=== PATIENT | female | born 1940 | race Caucasian/White ===

== ENCOUNTER → 2021-03-05 08:13 | Outpatient (BNVA) | payer MEDICARE, SELFPAY | PROVIDERS: PCP Nurse Practitioner Family | DX: N39.41 Urge incontinence (principal); N32.81 Overactive bladder; E78.5 Hyperlipidemia, unspecified; I10 Essential (primary) hypertension | CPT/HCPCS: 51798; 99212 ==

== ENCOUNTER → 2021-04-03 08:01 | Outpatient (BNVA) | payer MEDICARE, BC, SELFPAY | PROVIDERS: PCP Nurse Practitioner Family | DX: N32.81 Overactive bladder (principal) | CPT/HCPCS: 51798 ==

== ENCOUNTER → 2021-06-11 08:43 | Outpatient (BNVA) | payer MEDICARE, BC, SELFPAY | PROVIDERS: PCP Nurse Practitioner Family | DX: N32.81 Overactive bladder (principal) | CPT/HCPCS: 51798; 99212 ==

== ENCOUNTER → 2021-12-10 08:51 | Outpatient (BNVA) | payer MEDICARE, BC, SELFPAY | PROVIDERS: PCP Nurse Practitioner Family | DX: N32.81 Overactive bladder (principal) | CPT/HCPCS: 51798; 99212 ==

== ENCOUNTER → 2022-11-17 13:44 | Outpatient (BNVA) | payer MEDICARE, BC, SELFPAY | PROVIDERS: PCP Nurse Practitioner Family; Visit Provider Nurse Practitioner Family | DX: N32.81 Overactive bladder (principal); Z79.899 Other long term (current) drug therapy | CPT/HCPCS: 51798; 99212 ==

== ENCOUNTER 2023-04-22 11:19 | Outpatient (AMB) | payer MEDICARE, BC, SELFPAY ==
--- NOTE | 2023-04-22 11:23 | AM.OFFWIN_ITS ---
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 and has been taking otc cough syrup, she states she has pain in her upper back when she coughs and has experiecing sob. Patient Tobacco Use Status: Former Tobacco user Allergies Penicillins Allergy (Mild, Verified 04/22/23 11:25) UNKNOWN lisinopril [LISINOPRIL] Allergy (Unknown, Verified 04/22/23 11:25) COUGH Do you need a note to return to daycare/school/sports/work: No HPI HPI Comments History of Present Illness Details This is a 82-year-old female with past medical history significant for asthma who presents to the office today for a sick visit. Patient states she has had a dry cough for the past 2 weeks. She states she feels like she has mucus in her chest and in her throat but she is unable to cough the mucus up. She reports some mild chills but denies any fevers. She reports some mild dyspnea on exertion. She also reports some wheezing at nighttime. She denies any lower extremity edema. She denies any chest pain. She denies any abdominal pain or nausea/vomiting/diarrhea. She denies any known sick contacts. [facility] Medical History (Updated 11/17/22 @ 14:54 by NICA Deshpande-) Asthma Dementia HTN (hypertension) Hyperlipidemia OAB (overactive bladder) Primary osteoarthritis of left knee Primary osteoarthritis of right knee Urgency incontinence Surgical History History of surgery Social History Patient Tobacco Use Status: Former Tobacco user Review of Systems Const All systems reviewed & are unremarkable except as noted in HPI and below Reports no additional complaints, Reports chills and Denies fever(s) Eyes Reports no additional complaints ENT Reports no additional complaints Card Reports no additional complaints, Denies chest pain and Reports dyspnea on exertion Resp Reports no additional complaints, Reports cough, Reports pain with cough and Reports dyspnea on exertion GI Reports no additional complaints Reports no additional complaints Musc Reports no additional complaints Skin/Breast Reports system reviewed and no additional complaints, except as documented Neuro Reports no additional complaints Psych Reports no additional complaints Endo Reports no additional complaints Keaton/Lymph Reports no additional complaints Aller/Immun Reports no additional complaints Physical Exam Vital Signs: Last Vital Signs Temp 97.8 F 04/22/23 11:26 Pulse 66 04/22/23 11:26 BP 120/80 04/22/23 11:26 Pulse Ox 100 04/22/23 11:26 Oxygen Delivery Method Room Air 04/22/23 11:26 Const General: cooperative, healthy appearing, comfortable, no acute distress and well developed Orientation/consciousness: patient oriented x3 HEENT Head: Yes normal to inspection Ears: hearing grossly normal bilaterally General nose exam: Normal external nose present Face and sinus: Yes normal facial exam Mouth: Normal oral and palatal mucosa present Throat: Yes posterior oropharynx normal Resp Effort & Inspection: normal respiratory effort, not labored, no respiratory distress and no use of accessory muscles Auscultation: clear to auscultation bilaterally, no rales, no rhonchi and no wheezes Cardio Rate: regular rate Rhythm: regular rhythm Heart sounds: no gallops, no murmurs and no rubs Peripheral pulses: Peripheral pulses 2+ throughout GI Inspection: Yes normal to inspection and No distended Palpation (GI): Soft to palpation and nontender Auscultation: normal bowel sounds Skin General skin exam: no rashes or lesions noted Neuro General: patient oriented x3 Cranial nerves: Yes CN's II-XII intact bilaterally Gait exam (Neuro): Normal gait present Motor exam (neuro): 5/5 motor strength present throughout Assessment & Plan Assessment & Plan (1) Cough: Code(s): R05.9 - Cough, unspecified (2) Asthmatic bronchitis: Code(s): J45.909 - Unspecified asthma, uncomplicated Plan This is an 82-year-old female past medical history significant for asthma who presents with a dry cough, dyspnea on exertion, and wheezing at nighttime. Her history and physical are most consistent with an acute asthmatic bronchitis, but pneumonia cannot be ruled out. Chest x-ray was ordered to evaluate for pneumonia. Patient was sent home on a Z-Michael as well as a prednisone taper. Patient was instructed to follow-up here or go to the emergency room if she were to develop fever/chills, worsening shortness of breath, worsening cough sputum production, or hemoptysis. Patient verbalizes her understanding and she is in agreement with the plan. Orders: Orders XR chest 2V Today R05.9 - Cough, unspecified Medications: New azithromycin For 250 mg dose pack: take 500 mg today (day 1), then 250 mg for 4 days (days 2-5) PO 6 tabs 0RF prednisone Take 4 tablets daily for 2 days followed by 3 tablets daily for 2 days followed by 2 tablets daily for 2 days followed by 1 tablet daily for 2 days. 10 mg PO DIRECTED 20 tabs 0RF Coding Level of Care Code Est Pt Level 3 (22440) Diagnoses Cough R05.9 Asthmatic bronchitis J45.909
[2023-04-22 11:26] VITALS: BP 120/80; PULSE 66; TEMP 36.6; O2SAT 100
== END 2023-04-22 12:59 | disposition home or self-care (01) ==
PROVIDERS: PCP Nurse Practitioner Family; Visit Provider Physician Assistant Medical
DX: R05.9 Cough, unspecified (principal); J45.909 Unspecified asthma, uncomplicated
CPT/HCPCS: 99213

== ENCOUNTER 2023-04-22 11:58 | Outpatient (REF) | payer MEDICARE, BC, SELFPAY ==
--- NOTE | ~2023-04-22 | XR_ITS ---
EXAMINATION: XR CHEST CLINICAL INFORMATION: Cough. COMPARISON: 12/19/2012 TECHNIQUE: 2 views of the chest were obtained. FINDINGS: The lungs are well expanded. Increased opacity at the left base. No pleural effusion or pneumothorax. The cardiomediastinal silhouette is within normal limits. XR/XR chest 2V IMPRESSION: Increased left basilar opacity which could represent atelectasis or pneumonia.
== END 2023-04-22 11:59 | disposition home or self-care (01) ==
LOC: HO.HMGCX 11:58
PROVIDERS: PCP Nurse Practitioner Family; Visit Provider Physician Assistant Medical
DX: R05.9 Cough, unspecified (principal)
CPT/HCPCS: 71046

== ENCOUNTER 2023-07-05 10:12 | Outpatient (AMB) | payer MEDICARE, BC, SELFPAY ==
--- NOTE | 2023-07-05 10:20 | MHC.OFFVIS ---
Intake Intake Visit Reasons: 6m follow up/PVR Intake Note: Patient is present for follow up OAB Urology medications: solifenacin (vesicare), gemtesa, estradiol cream Blood thinners: none Post void residual: 120ml's [employer] Required: No Accompanied by: Self / Same As Patient Allergies Penicillins Allergy (Mild, Verified 07/05/23 11:28) UNKNOWN lisinopril [LISINOPRIL] Allergy (Unknown, Verified 07/05/23 11:28) COUGH Medication List - Last Reconciled 07/05/23 by NICA Deshpande- aspirin (Adult Low Dose Aspirin) 81 mg PO DAILY atenolol 50 mg PO DAILY donepezil 5 mg PO DAILY estradiol 0.01%(0.1mg/gram) (Estrace) pea sized amount per urethra vaginal daily; 30 days fluticasone furoate-vilanterol 100-25 mcg/dose 1 ea inhalation DAILY gabapentin 400 mg PO BID losartan 25 mg PO DAILY montelukast 10 mg PO DAILY pantoprazole 20 mg PO DAILY paroxetine HCl 40 mg PO DAILY ropinirole 0.25 mg PO BID simvastatin 20 mg PO BEDTIME solifenacin (Vesicare) 5 mg PO DAILY 90 days vibegron (Gemtesa) 75 mg PO DAILY 90 days HPI HPI Comments History of Present Illness Details Ivelisse is a pleasant 82-year-old female patient of Dr. Bolden. She has a past medical history of dementia, asthma, hyperlipidemia, hypertension, overactive bladder, osteoarthritis, and urgency incontinence. She presents today to the office for follow-up regarding her lower urinary tract symptoms. She reports living at [facility] and really enjoys living there. When asked she reports to be doing and feeling well. In discussion with the patient today regarding her urinary symptoms she reports compliance with Gemtesa 75 mg daily, VESIcare 5 mg daily and Estrace cream 3 times per week as prescribed. When asked she reports feeling like she has been having difficulty initiating her urinary stream. However, in assessment evaluation with the patient today she is vague and upon further assessment discusses her history of dementia and reports she has a difficult time remembering. When asked she denies hematuria, dysuria, foul smelling urine, flank pain, fever, and or chills. She reports utilizing one adult diaper per day. She endorses being active within the community ([facility]) as well as at her residence. She states she continues working on her memory with activities daily. In office urinalysis results reviewed with the patient today. PVR 120ml's. Discussed given symptoms with difficulty initiating urinary stream and increase in PVR will discontinue VESIcare 5 mg daily at this time. Discussed obtaining retroperitoneal ultrasound for further assessment evaluation. Patient otherwise denies any bothersome urinary issues or concerns at this time. [facility] Medical History Dementia Asthma Hyperlipidemia HTN (hypertension) OAB (overactive bladder) Primary osteoarthritis of left knee Primary osteoarthritis of right knee Urgency incontinence Surgical History History of surgery Social History Patient Tobacco Use Status: Former Tobacco user Review of Systems Const Reports as per HPI Eyes Reports no additional complaints ENT Reports no additional complaints Card Reports as per HPI Resp Reports no additional complaints GI Reports no additional complaints Reports as per HPI Musc Details: She reports following up with pain management in [place] for ongoing injections for her arthritis. Reports as per HPI Neuro Reports as per HPI Psych Reports no additional complaints Endo Reports no additional complaints Keaton/Lymph Reports no additional complaints Aller/Immun Reports no additional complaints Physical Exam Const General: cooperative, healthy appearing, comfortable, no acute distress, well developed, alert and awake Orientation/consciousness: patient oriented x3 Limitations: ambulation with walker HEENT Head: Yes normal to inspection, Yes normocephalic and Yes atraumatic Ears: hearing grossly normal bilaterally Eyes General: appearance normal, both eyes and all related structures Neck Neck: Yes normal visual inspection and Yes trachea midline Chest Chest palpation & inspection: normal inspection of the chest Resp Effort & Inspection: normal respiratory effort and able to speak in complete sentences Cardio Rate: regular rate GI Inspection: Yes normal to inspection General: Yes no CVA tenderness Back/Spine/Pelvis Back: no CVA tenderness Skin General skin exam: no rashes or lesions noted Neuro General: patient oriented x3 Extrem General: Yes normal to inspection Psych Appearance: grossly normal Mental Status: mental status grossly normal Speech and movement: Normal speech and movement present and Clear speech present Affect: normal affect Attitude: cooperative Thought process: Normal thought process present Thought content: Normal thought content present Insight: Fair insight present (Psych) Judgement: Fair judgement present (Psych) Office Procedures Post Void Residual Post Residual Void Post Void Residual (PVR): 120 [id number] Void Residual by ultrasound Results AMB Urinalysis, Automated UA Leukoctes 0 Violet/uL Last Edit by Shadia Figueroa on 07/05/23 11:09 UA Nitrite Negative Last Edit by [email or web address] on 07/05/23 11:09 UA Urobilinogen 0.2 mg/dL Last Edit by [email or web address] on 07/05/23 11:09 UA Protein 15 mg/dL Last Edit by [employer] on 07/05/23 11:09 UA pH 5.5 Last Edit by [email or web address] on 07/05/23 11:09 UA Blood 0 Zachery/uL Last Edit by [email or web address] on 07/05/23 11:09 UA Specific [place] 1.025 Last Edit by [email or web address] on 07/05/23 11:09 UA Ketone Negative Last Edit by [email or web address] on 07/05/23 11:09 UA Bilirubin 1 mg/dL Last Edit by [employer] on 07/05/23 11:09 UA Glucose 0 mg/dL Last Edit by [email or web address] on 07/05/23 11:09 Results Reviewed Results Reviewed: Laboratory Last Values Urine pH (Auto) 5.5 07/05/23 11:05 Specific [place] (Auto) 1.025 07/05/23 11:05 Urine Protein (Auto) 15 mg/dL 07/05/23 11:05 Glucose (UA)(Auto) 0 mg/dL 07/05/23 11:05 Urine Ketones (Auto) Negative 07/05/23 11:05 Urine Blood (Auto) 0 Zachery/uL 07/05/23 11:05 Urine Nitrite (Auto) Negative 07/05/23 11:05 Urine Bilirubin (Auto) 1 mg/dL 07/05/23 11:05 Urine Urobilinogen (Auto) 0.2 mg/dL 07/05/23 11:05 Leukocyte Esterase (Auto) 0 Violet/uL 07/05/23 11:05 Assessment & Plan Assessment & Plan (1) OAB (overactive bladder): Code(s): N32.81 - Overactive bladder (2) Incomplete bladder emptying: Code(s): R33.9 - Retention of urine, unspecified Plan In office urinalysis results reviewed with the patient today. PVR 120 mL. Discussed at length incomplete bladder emptying. Continue Gemtesa 75 mg daily. Continue compliance with Estrace cream as prescribed. Stop VESIcare 5 mg as discussed. Will obtain retroperitoneal ultrasound for further assessment evaluation. Follow-up in 6 weeks with PVR and imaging to be completed prior; or sooner with any issues, concerns, and or questions. Orders: Orders US retroperitoneal comp Today N32.81 - Overactive bladder AMB Urinalysis Automated Today Z13.9 - Encounter for screening, unspecified AMB Post Void Residual by ultrasound Today N32.81 - Overactive bladder Medications: Discontinued solifenacin (Vesicare) Discontinued Reason: Doctor's Order 5 mg PO DAILY 90 tabs 2RF OAB 90 days Patient Instructions: The patient had an opportunity to ask questions regarding the treatment plan. All questions were answered. Physical exam, labs, and imaging were discussed and reviewed in detail. As well as risks, benefits, and discussion of treatment choices. No major barriers to understanding were identified. The patient expressed understanding and agreement with the above treatment plan. The patient was made aware they should contact our office by phone for worsening of their current condition, the appearance of new symptoms, or with any questions or concerns. Compliance is encouraged with any medications and follow up testing that is ordered. It is a privilege to be allowed the opportunity to participate in? your urological care.? Again, if you have any questions or concerns If you have any questions or concerns please do not hesitate to contact me. The office is [phone]. This note is constructed using voice recognition software. While every effort has been made to ensure accuracy senior lead developer errors may have been included. Yours sincerely, MILAD Deshpande Coding Level of Care Code Est Pt Level 3 (50229) Diagnoses OAB (overactive bladder) N32.81 Incomplete bladder emptying R33.9 CPT Codes Post Residual Void - PVR CPT Code: 48323-Asso Void Residual by ultrasound ([id number])
== END 2023-07-05 11:30 | disposition home or self-care (01) ==
PROVIDERS: PCP Nurse Practitioner Family; Visit Provider Nurse Practitioner Family
DX: N32.81 Overactive bladder (principal); R33.9 Retention of urine, unspecified
CPT/HCPCS: 99213

== ENCOUNTER → 2023-07-05 10:12 | Outpatient (BNVA) | payer MEDICARE, BC, SELFPAY | PROVIDERS: PCP Nurse Practitioner Family; Visit Provider Nurse Practitioner Family | DX: N32.81 Overactive bladder (principal); R33.9 Retention of urine, unspecified; Z79.899 Other long term (current) drug therapy | CPT/HCPCS: 51798; 81003; 99212 ==

== ENCOUNTER 2023-08-08 13:55 | Outpatient (REF) | payer MEDICARE, SELFPAY ==
--- NOTE | ~2023-08-08 | US_ITS ---
EXAMINATION: US RETROPERITONEAL COMPLETE (RENAL) CLINICAL INFORMATION: Overactive bladder. COMPARISON: None available. TECHNIQUE: Real-time imaging of the kidneys and bladder. FINDINGS: RIGHT KIDNEY: 10.8 x 5.3 x 4.2 cm (SAG x AP x TRV). The kidney is normal in size, contour, and echogenicity. Renal cortical thickness is normal. No calculi or focal parenchymal lesions. No hydronephrosis. LEFT KIDNEY: 9.9 x 5.0 x 6.0 cm (SAG x AP x TRV). The kidney is normal in size, contour, and echogenicity. Renal cortical thickness is normal. No renal calculi or hydronephrosis. Tiny anechoic simple cyst is seen in inferior left renal cortex measuring 0.7 x 0.8 x 0.6 cm in size. BLADDER: Partially distended. Bilateral ureteral jets are demonstrated. Prevoid bladder volume is 29 mL. The patient could not hold bladder. US/US retroperitoneal comp IMPRESSION: 1. Inferior left renal cortical simple cyst, Bosniak category 1 lesion is seen, for which no follow up imaging is recommended. 2. No evidence of hydronephrosis. 3. Unremarkable urinary bladder, which is not adequately distended. Patent bilateral ureters are demonstrated.
== END 2023-08-08 13:56 | disposition home or self-care (01) ==
LOC: HO.US 13:55
PROVIDERS: Visit Provider Nurse Practitioner Family
DX: N32.81 Overactive bladder (principal)
CPT/HCPCS: 76770

== ENCOUNTER 2023-08-17 09:13 | Outpatient (AMB) | payer MEDICARE, BC, SELFPAY ==
--- NOTE | 2023-08-17 10:19 | A.OFFVIS_ITS ---
Intake Intake Visit Reasons: 6w/US/PVR(set) Intake Note: Patient is present for follow up OAB Urology medications: d/c solifenacin (vesicare), gemtesa, estradiol cream Blood thinners: none Post void residual: 79ml's Railroad Carman Required: No Accompanied by: Self / Same As Patient Allergies Penicillins Allergy (Mild, Verified 08/17/23 21:41) UNKNOWN lisinopril [LISINOPRIL] Allergy (Unknown, Verified 08/17/23 21:41) COUGH Medication List - Last Reconciled 08/17/23 by NICA Deshpande- aspirin (Adult Low Dose Aspirin) 81 mg PO DAILY atenolol 50 mg PO DAILY donepezil 5 mg PO DAILY estradiol 0.01%(0.1mg/gram) (Estrace) pea sized amount per urethra vaginal daily; 30 days fluticasone furoate-vilanterol 100-25 mcg/dose 1 ea inhalation DAILY gabapentin 400 mg PO BID losartan 25 mg PO DAILY montelukast 10 mg PO DAILY pantoprazole 20 mg PO DAILY paroxetine HCl 40 mg PO DAILY ropinirole 0.25 mg PO BID simvastatin 20 mg PO BEDTIME vibegron (Gemtesa) 75 mg PO DAILY 90 days HPI HPI Comments History of Present Illness Details Ivelisse is a pleasant 82-year-old female patient of Dr. Bolden. She has a past medical history of dementia, asthma, hyperlipidemia, hypertension, overactive bladder, osteoarthritis, and urgency incontinence. She presents today to the office for follow-up regarding her lower urinary tract symptoms. Of note, patient was seen approximately 6 weeks ago at which time a retroperitoneal ultrasound was ordered for further assessment evaluation. These results reviewed with the patient today. Right kidney with no calculi, lesions, and or hydronephrosis. The left kidney with no calculi or hydronephrosis. Tiny anechoic simple cyst is seen in inferior left renal cortex measuring 0.7 x 0.8 x 0.6 cm in size. Bosniak category 1, for which no follow- up imaging is recommended per radiology report. The bladder is partially distended. Bilateral ureteral jets are demonstrated. Pre void bladder volume is approximately 30 mL. The patient could not void. She discusses living at the [facility] in [place] and really enjoys living there however feels her memory and dementia is worsening. She discusses upcoming appointment with PCP to discuss further treatment options for her dementia. She continues to report nocturia. However, she reports feeling her chronic back pain is will initially wakes her up and then she will feel the need to use the bathroom. She reports compliance with Gemtesa a 75 mg daily during last office visit VESIcare 5 mg daily was discontinued due to patient reporting difficulty initiating her urinary stream. When asked she denies hematuria, dysuria, foul smelling urine, flank pain, fever, and or chills. She reports utilizing one/two adult diapers per day. She endorses being active within the community ([facility]) as well as at her residence. She states she continues working on her memory with activities daily. In office urinalysis results reviewed with the patient today. PVR 76ml's. Discuss trial of other overactive bladder medication. Discussed at length potential causes for lower urinary tract symptoms patient is experiencing. She otherwise offers no other issues or concerns at this time. [facility] Medical History Dementia Asthma Hyperlipidemia HTN (hypertension) OAB (overactive bladder) Primary osteoarthritis of left knee Primary osteoarthritis of right knee Urgency incontinence Surgical History History of surgery Social History Patient Tobacco Use Status: Former Tobacco user Review of Systems Const Reports as per HPI Eyes Reports no additional complaints ENT Reports no additional complaints Card Reports as per HPI Resp Reports no additional complaints GI Reports no additional complaints Reports as per HPI Musc Details: She reports following up with pain management in [place] for ongoing injections for her arthritis. Reports as per HPI Neuro Reports as per HPI Psych Reports no additional complaints Endo Reports no additional complaints Keaton/Lymph Reports no additional complaints Aller/Immun Reports no additional complaints Physical Exam Const General: cooperative, healthy appearing, comfortable, no acute distress, well developed, alert and awake Orientation/consciousness: patient oriented x3 Limitations: ambulation with walker HEENT Head: Yes normal to inspection, Yes normocephalic and Yes atraumatic Ears: hearing grossly normal bilaterally Eyes General: appearance normal, both eyes and all related structures Neck Neck: Yes normal visual inspection and Yes trachea midline Chest Chest palpation & inspection: normal inspection of the chest Resp Effort & Inspection: normal respiratory effort and able to speak in complete sentences Cardio Rate: regular rate GI Inspection: Yes normal to inspection General: Yes no CVA tenderness Back/Spine/Pelvis Back: no CVA tenderness Skin General skin exam: no rashes or lesions noted Neuro General: patient oriented x3 Extrem General: Yes normal to inspection Psych Appearance: grossly normal Mental Status: mental status grossly normal Speech and movement: Normal speech and movement present and Clear speech present Affect: normal affect Attitude: cooperative Thought process: Normal thought process present Thought content: Normal thought content present Insight: Fair insight present (Psych) Judgement: Fair judgement present (Psych) Office Procedures Post Void Residual Post Residual Void Post Void Residual (PVR): 79 [id number] Void Residual by ultrasound Results AMB Urinalysis, Automated UA Leukoctes 0 Violet/uL Last Edit by Karmarama on 08/17/23 10:43 UA Nitrite Negative Last Edit by Karmarama on 08/17/23 10:43 UA Urobilinogen 0.2 mg/dL Last Edit by Karmarama on 08/17/23 10:43 UA Protein 15 mg/dL Last Edit by Karmarama on 08/17/23 10:43 UA pH 5.5 Last Edit by Karmarama on 08/17/23 10:43 UA Blood 0 Zachery/uL Last Edit by Karmarama on 08/17/23 10:43 UA Specific [place] 1.030 Last Edit by Karmarama on 08/17/23 10:43 UA Ketone Negative Last Edit by Karmarama on 08/17/23 10:43 UA Bilirubin 1 mg/dL Last Edit by Karmarama on 08/17/23 10:43 UA Glucose 0 mg/dL Last Edit by Karmarama on 08/17/23 10:43 Results Reviewed Results Reviewed: Laboratory Last Values Urine pH (Auto) 5.5 08/17/23 10:22 Specific [place] (Auto) 1.030 08/17/23 10:22 Urine Protein (Auto) 15 mg/dL 08/17/23 10:22 Glucose (UA)(Auto) 0 mg/dL 08/17/23 10:22 Urine Ketones (Auto) Negative 08/17/23 10:22 Urine Blood (Auto) 0 Zachery/uL 08/17/23 10:22 Urine Nitrite (Auto) Negative 08/17/23 10:22 Urine Bilirubin (Auto) 1 mg/dL 08/17/23 10:22 Urine Urobilinogen (Auto) 0.2 mg/dL 08/17/23 10:22 Leukocyte Esterase (Auto) 0 Violet/uL 08/17/23 10:22 Date of Service: 08/08/23 EXAMINATION: US RETROPERITONEAL COMPLETE (RENAL) FINDINGS: RIGHT KIDNEY: 10.8 x 5.3 x 4.2 cm (SAG x AP x TRV). The kidney is normal in size, contour, and echogenicity. Renal cortical thickness is normal. No calculi or focal parenchymal lesions. No hydronephrosis. LEFT KIDNEY: 9.9 x 5.0 x 6.0 cm (SAG x AP x TRV). The kidney is normal in size, contour, and echogenicity. Renal cortical thickness is normal. No renal calculi or hydronephrosis. Tiny anechoic simple cyst is seen in inferior left renal cortex measuring 0.7 x 0.8 x 0.6 cm in size. BLADDER: Partially distended. Bilateral ureteral jets are demonstrated. Prevoid bladder volume is 29 mL. The patient could not hold bladder. IMPRESSION: 1. Inferior left renal cortical simple cyst, Bosniak category 1 lesion is seen, for which no follow up imaging is recommended. 2. No evidence of hydronephrosis. 3. Unremarkable urinary bladder, which is not adequately distended. Patent bilateral ureters are demonstrated. Assessment & Plan Assessment & Plan (1) Incomplete bladder emptying: Code(s): R33.9 - Retention of urine, unspecified (2) OAB (overactive bladder): Code(s): N32.81 - Overactive bladder (3) Renal cyst: Code(s): N28.1 - Cyst of kidney, acquired (4) Nocturia: Code(s): R35.1 - Nocturia Plan In office urinalysis results reviewed with the patient today. PVR 76 mL. Recent retroperitoneal ultrasound results reviewed with the patient today. Stop Gemtesa Start Myrbetriq as discussed and prescribed. Discussed at length potential causes for lower urinary tract symptoms patient is experiencing. Discussed and stressed the importance of limiting fluids 2-3 hours prior to bed to assist with decreasing episodes of nocturia. Discussed near future urodynamics and or in office cystoscopy for further assessment evaluation if symptoms persist and/or worsen. Follow-up in 6 weeks with PVR; or sooner with any issues, concerns, and or questions. Orders: Orders AMB Urinalysis Automated Today Z13.9 - Encounter for screening, unspecified AMB Post Void Residual by ultrasound Today R33.9 - Retention of urine, unspecified Medications: New mirabegron ER (Myrbetriq) 50 mg PO DAILY 30 days 30 tabs 1RF Discontinued vibegron (Gemtesa) Discontinued Reason: Doctor's Order 75 mg PO DAILY 90 days 90 tabs 2RF Patient Instructions: The patient had an opportunity to ask questions regarding the treatment plan. All questions were answered. Physical exam, labs, and imaging were discussed and reviewed in detail. As well as risks, benefits, and discussion of treatment choices. No major barriers to understanding were identified. The patient expressed understanding and agreement with the above treatment plan. The patient was made aware they should contact our office by phone for worsening of their current condition, the appearance of new symptoms, or with any questions or concerns. Compliance is encouraged with any medications and follow up testing that is ordered. It is a privilege to be allowed the opportunity to participate in? your urological care.? Again, if you have any questions or concerns If you have any questions or concerns please do not hesitate to contact me. The office is [phone]. This note is constructed using voice recognition software. While every effort has been made to ensure accuracy technical illustrator errors may have been included. Yours sincerely, MILAD Deshpande Coding Level of Care Code Est Pt Level 4 (42204) Diagnoses Incomplete bladder emptying R33.9 OAB (overactive bladder) N32.81 Renal cyst N28.1 Nocturia R35.1 CPT Codes Post Residual Void - PVR CPT Code: 85071-Tscm Void Residual by ultrasound ([id number])
== END 2023-08-17 10:59 | disposition home or self-care (01) ==
LOC: HO.HUSH 09:13
PROVIDERS: PCP Nurse Practitioner Family; Visit Provider Nurse Practitioner Family
DX: R33.9 Retention of urine, unspecified (principal); N32.81 Overactive bladder; N28.1 Cyst of kidney, acquired; R35.1 Nocturia
CPT/HCPCS: 99214

== ENCOUNTER → 2023-08-17 09:13 | Outpatient (BNVA) | payer BC, SELFPAY | PROVIDERS: PCP Nurse Practitioner Family; Visit Provider Nurse Practitioner Family | DX: R33.9 Retention of urine, unspecified (principal); N32.81 Overactive bladder; N28.1 Cyst of kidney, acquired; R35.1 Nocturia | CPT/HCPCS: 51798; 81003 ==

== ENCOUNTER 2023-09-30 09:15 | Outpatient (AMB) | payer MEDICARE, BC, SELFPAY ==
--- NOTE | 2023-09-30 09:47 | A.OFFVIS_ITS ---
Intake Intake Visit Reasons: 6w/PVR Intake Note: Patient is present for follow up OAB Urology medications: estradiol cream, myrbetriq Blood thinner: aspirin Post void residual: 15ml's Nc Manager Required: No Accompanied by: Self / Same As Patient Allergies Penicillins Allergy (Mild, Verified 09/30/23 10:08) UNKNOWN lisinopril [LISINOPRIL] Allergy (Unknown, Verified 09/30/23 10:08) COUGH Medication List - Last Reconciled 09/30/23 by NICA Deshpande-STACIE aspirin (Adult Low Dose Aspirin) 81 mg PO DAILY atenolol 50 mg PO DAILY donepezil 5 mg PO DAILY estradiol 0.01%(0.1mg/gram) (Estrace) pea sized amount per urethra vaginal daily; 30 days fluticasone furoate-vilanterol 100-25 mcg/dose 1 ea inhalation DAILY gabapentin 400 mg PO BID losartan 25 mg PO DAILY mirabegron ER (Myrbetriq) 50 mg PO DAILY 90 days montelukast 10 mg PO DAILY pantoprazole 20 mg PO DAILY paroxetine HCl 40 mg PO DAILY ropinirole 0.25 mg PO BID simvastatin 20 mg PO BEDTIME HPI HPI Comments History of Present Illness Details Ivelisse is a pleasant 83-year-old female patient of Dr. Bolden. She has a past medical history of dementia, asthma, hyperlipidemia, hypertension, overactive bladder, osteoarthritis, and urgency incontinence. She presents today to the office for follow-up regarding her lower urinary tract symptoms. Of note, patient was seen approximately 6 weeks ago at which time her jump test and VESIcare discontinued and was started on 50 mg of Myrbetriq daily. In discussion with the patient today she reports noting significant improvement in nocturia, urinary frequency, and urinary urgency. She reports to be happy with current voiding parameters on 50 mg of Myrbetriq daily and wishes to continue at this time. Previous workup has included a retroperitoneal ultrasound noting right kidney with no calculi, lesions, and or hydronephrosis. The left kidney with no calculi or hydronephrosis. Tiny anechoic simple cyst is seen in inferior left renal cortex measuring 0.7 x 0.8 x 0.6 cm in size. Bosniak category 1, for which no follow-up imaging is recommended per radiology report. The bladder is partially distended. Bilateral ureteral jets are demonstrated. Pre void bladder volume is approximately 30 mL. In office urinalysis results reviewed with the patient today. PVR 15 mL. She discusses living at the [facility] in [place] and really enjoys living there however feels her memory and dementia at times are worsening. She discusses upcoming appointment with PCP to discuss further treatment options for her dementia. When asked she denies hematuria, dysuria, foul smelling urine, flank pain, fever, and or chills. She discusses being active within the community ([facility]) as well as at her residence. She states she continues working on her memory with activities daily. She otherwise offers no other issues or concerns at this time. [facility] Medical History Dementia Asthma Hyperlipidemia HTN (hypertension) OAB (overactive bladder) Primary osteoarthritis of left knee Primary osteoarthritis of right knee Urgency incontinence Surgical History History of surgery Social History Patient Tobacco Use Status: Former Tobacco user Review of Systems Const Reports as per HPI Eyes Reports no additional complaints ENT Reports no additional complaints Card Reports as per HPI Resp Reports no additional complaints GI Reports no additional complaints Reports as per HPI Musc Details: She reports following up with pain management in [place] for ongoing injections for her arthritis. Reports as per HPI Neuro Reports as per HPI Psych Reports no additional complaints Endo Reports no additional complaints Keaton/Lymph Reports no additional complaints Aller/Immun Reports no additional complaints Physical Exam Const General: cooperative, healthy appearing, comfortable, no acute distress, well developed, alert and awake Orientation/consciousness: patient oriented x3 Limitations: ambulation with walker HEENT Head: Yes normal to inspection, Yes normocephalic and Yes atraumatic Ears: hearing grossly normal bilaterally Eyes General: appearance normal, both eyes and all related structures Neck Neck: Yes normal visual inspection and Yes trachea midline Chest Chest palpation & inspection: normal inspection of the chest Resp Effort & Inspection: normal respiratory effort and able to speak in complete sentences Cardio Rate: regular rate GI Inspection: Yes normal to inspection General: Yes no CVA tenderness Back/Spine/Pelvis Back: no CVA tenderness Skin General skin exam: no rashes or lesions noted Neuro General: patient oriented x3 Extrem General: Yes normal to inspection Psych Appearance: grossly normal Mental Status: mental status grossly normal Speech and movement: Normal speech and movement present and Clear speech present Affect: normal affect Attitude: cooperative Thought process: Normal thought process present Thought content: Normal thought content present Insight: Fair insight present (Psych) Judgement: Fair judgement present (Psych) Office Procedures Post Void Residual Post Residual Void Post Void Residual (PVR): 15 [id number] Void Residual by ultrasound Results AMB Urinalysis, Automated UA Leukoctes 15 Violet/uL Last Edit by [employer] on 09/30/23 10:13 UA Nitrite Negative Last Edit by Freebee on 09/30/23 10:13 UA Urobilinogen 0.2 mg/dL Last Edit by Freebee on 09/30/23 10:13 UA Protein 30 mg/dL Last Edit by Freebee on 09/30/23 10:13 UA pH 5.5 Last Edit by Freebee on 09/30/23 10:13 UA Blood 0 Zachery/uL Last Edit by [employer] on 09/30/23 10:13 UA Specific [place] 1.030 Last Edit by Freebee on 09/30/23 10:13 UA Ketone Positive Last Edit by Freebee on 09/30/23 10:13 UA Bilirubin 1 mg/dL Last Edit by Freebee on 09/30/23 10:13 UA Glucose 0 mg/dL Last Edit by Freebee on 09/30/23 10:13 Results Reviewed Results Reviewed: Laboratory Last Values Urine pH (Auto) 5.5 09/30/23 10:09 Specific [place] (Auto) 1.030 09/30/23 10:09 Urine Protein (Auto) 30 mg/dL 09/30/23 10:09 Glucose (UA)(Auto) 0 mg/dL 09/30/23 10:09 Urine Ketones (Auto) Positive 09/30/23 10:09 Urine Blood (Auto) 0 Zachery/uL 09/30/23 10:09 Urine Nitrite (Auto) Negative 09/30/23 10:09 Urine Bilirubin (Auto) 1 mg/dL 09/30/23 10:09 Urine Urobilinogen (Auto) 0.2 mg/dL 09/30/23 10:09 Leukocyte Esterase (Auto) 15 Violet/uL 09/30/23 10:09 Assessment & Plan Assessment & Plan (1) Nocturia: Code(s): R35.1 - Nocturia (2) OAB (overactive bladder): Code(s): N32.81 - Overactive bladder (3) Renal cyst: Code(s): N28.1 - Cyst of kidney, acquired Plan In office urinalysis results reviewed with the patient today; as noted above. PVR 15 mL. Patient reports significant improvement in lower urinary tract symptoms on Myrbetriq 50 mg daily Will continue; refill provided She otherwise denies any bothersome urinary issues or concerns. Educated, enociuraged, and stressed the importance of drinking fluid daily. Continue limiting fluids 2-3 hours prior to bed to assist with decreasing episodes of nocturia. Follow-up in 6 months with PVR; or sooner with any issues, concerns, or questions Orders: Orders AMB Urinalysis Automated Today Z13.9 - Encounter for screening, unspecified AMB Post Void Residual by ultrasound Today R33.9 - Retention of urine, unspecified Medications: Changed From mirabegron ER (Myrbetriq) 50 mg PO DAILY 30 days 30 tabs 1RF To mirabegron ER (Myrbetriq) 50 mg PO DAILY 90 tabs 3RF 90 days Patient Instructions: The patient had an opportunity to ask questions regarding the treatment plan. All questions were answered. Physical exam, labs, and imaging were discussed and reviewed in detail. As well as risks, benefits, and discussion of treatment choices. No major barriers to understanding were identified. The patient expressed understanding and agreement with the above treatment plan. The patient was made aware they should contact our office by phone for worsening of their current condition, the appearance of new symptoms, or with any questions or concerns. Compliance is encouraged with any medications and follow up testing that is ordered. It is a privilege to be allowed the opportunity to participate in? your urological care.? Again, if you have any questions or concerns If you have any questions or concerns please do not hesitate to contact me. The office is [phone]. This note is constructed using voice recognition software. While every effort has been made to ensure accuracy pediatric acute care unit nurse errors may have been included. Yours sincerely, Elsa Ba, CERTIFIED MEDICAL TRANSCRIPTIONIST-BC Coding Level of Care Code Est Pt Level 3 (07318) Diagnoses Nocturia R35.1 OAB (overactive bladder) N32.81 Renal cyst N28.1 CPT Codes Post Residual Void - PVR CPT Code: 98624-Keil Void Residual by ultrasound ([id number])
== END 2023-09-30 10:07 | disposition home or self-care (01) ==
PROVIDERS: PCP Nurse Practitioner Family; Visit Provider Nurse Practitioner Family
DX: R35.1 Nocturia (principal); N32.81 Overactive bladder; N28.1 Cyst of kidney, acquired; Z13.9 Encounter for screening, unspecified
CPT/HCPCS: 99213

== ENCOUNTER → 2023-09-30 09:15 | Outpatient (BNVA) | payer BC, SELFPAY | PROVIDERS: PCP Nurse Practitioner Family; Visit Provider Nurse Practitioner Family | DX: N32.81 Overactive bladder (principal); R35.1 Nocturia; N28.1 Cyst of kidney, acquired | CPT/HCPCS: 51798; 81003 ==

== ENCOUNTER 2024-03-30 12:54 | Outpatient (AMB) | payer MEDICARE, BC, SELFPAY ==
--- NOTE | 2024-03-30 13:16 | MHC.OFFVIS ---
Intake Visit Reasons: 6M f/u with PVR Intake Note: Patient is present for PVR and 6 month f/u Urology Medication:mirabegron Antibiotic Allergy:penicillin Blood Thinner:aspirin Last PVR:15ml Todays PVR: 0mls Warhead Maintenance Specialist Required: No Allergies Penicillins Allergy (Mild, Verified 04/01/24 15:57) UNKNOWN lisinopril [LISINOPRIL] Allergy (Unknown, Verified 04/01/24 15:57) COUGH Medication List - Last Reconciled 04/01/24 by NICA Deshpande-STACIE aspirin (Adult Low Dose Aspirin) 81 mg PO DAILY atenolol 50 mg PO DAILY donepezil 5 mg PO DAILY estradiol 0.01%(0.1mg/gram) (Estrace) pea sized amount per urethra vaginal daily; 30 days fluticasone furoate-vilanterol 100-25 mcg/dose 1 ea inhalation DAILY gabapentin 400 mg PO BID losartan 25 mg PO DAILY mirabegron ER (Myrbetriq) 50 mg PO DAILY 90 days montelukast 10 mg PO DAILY pantoprazole 20 mg PO DAILY paroxetine HCl 40 mg PO DAILY ropinirole 0.25 mg PO BID simvastatin 20 mg PO BEDTIME HPI Comments Details: Ivelisse is a pleasant 83-year-old female patient of Dr. Bolden. She has a past medical history of dementia, asthma, hyperlipidemia, hypertension, overactive bladder, osteoarthritis, and urgency incontinence. She presents today to the office for follow-up regarding her lower urinary tract symptoms/overactive bladder. In discussion with the patient today she reports to be doing and feeling well. She reports noting significant improvement in lower urinary tract symptoms throughout the day with 50 mg of Myrbetriq daily. She does no episodes of nocturia 2-3 times per night however does endorse to drinking fluids prior to bed. She otherwise hematuria, dysuria, foul smelling urine, flank pain, fever, and or chills. Previous workup has included a retroperitoneal ultrasound noting right kidney with no calculi, lesions, and or hydronephrosis. The left kidney with no calculi or hydronephrosis. Tiny anechoic simple cyst is seen in inferior left renal cortex measuring 0.7 x 0.8 x 0.6 cm in size. Bosniak category 1, for which no follow-up imaging is recommended per radiology report. The bladder is partially distended. Bilateral ureteral jets are demonstrated. Pre void bladder volume is approximately 30 mL. In office urinalysis results reviewed with the patient today. PVR 0 mL. She discusses living at the [facility] in [place] and really enjoys living there however feels her memory and dementia at times are worsening. She discusses being active within the community ([facility]) as well as at her residence. She states she continues working on her memory with activities daily. She otherwise offers no other issues or concerns at this time. [facility] Medical History Dementia Asthma Hyperlipidemia HTN (hypertension) OAB (overactive bladder) Primary osteoarthritis of left knee Primary osteoarthritis of right knee Urgency incontinence Surgical History History of surgery Social History Patient Tobacco Use Status: Former Tobacco user Review of Systems Const Reports as per HPI Eyes Reports no additional complaints ENT Reports no additional complaints Card Reports as per HPI Resp Reports no additional complaints GI Reports no additional complaints Reports as per HPI Musc Details: She reports following up with pain management in [place] for ongoing injections for her arthritis. Reports as per HPI Neuro Reports as per HPI Psych Reports no additional complaints Endo Reports no additional complaints Keaton/Lymph Reports no additional complaints Aller/Immun Reports no additional complaints Physical Exam Const General: cooperative, healthy appearing, comfortable, no acute distress, well developed, alert and awake Orientation/consciousness: patient oriented x3 Limitations: ambulation with walker HEENT Head: Yes normal to inspection, Yes normocephalic and Yes atraumatic Ears: hearing grossly normal bilaterally Eyes General: appearance normal, both eyes and all related structures Neck Neck: Yes normal visual inspection and Yes trachea midline Chest Chest palpation & inspection: normal inspection of the chest Resp Effort & Inspection: normal respiratory effort and able to speak in complete sentences Cardio Rate: regular rate GI Inspection: Yes normal to inspection General: Yes no CVA tenderness Back/Spine/Pelvis Back: no CVA tenderness Skin General skin exam: no rashes or lesions noted Neuro General: patient oriented x3 Extrem General: Yes normal to inspection Psych Appearance: grossly normal Mental Status: mental status grossly normal Speech and movement: Normal speech and movement present and Clear speech present Affect: normal affect Attitude: cooperative Thought process: Normal thought process present Thought content: Normal thought content present Insight: Fair insight present (Psych) Judgement: Fair judgement present (Psych) Results AMB Urinalysis, Automated UA Leukoctes 0 Violet/uL Last Edit by Jr Moore [facility] on 03/30/24 13:37 UA Nitrite Negative Last Edit by Jr Moore [facility] on 03/30/24 13:37 UA Urobilinogen 0.2 mg/dL Last Edit by Jr Moore [facility] on 03/30/24 13:37 UA Protein 15 mg/dL Last Edit by Jr Moore [facility] on 03/30/24 13:37 UA pH 5.0 Last Edit by Jr Moore [facility] on 03/30/24 13:37 UA Blood 0 Zachery/uL Last Edit by Jr Moore [facility] on 03/30/24 13:37 UA Specific [place] 1.030 Last Edit by Jr Moore [facility] on 03/30/24 13:37 UA Ketone Positive Last Edit by Jr Moore [facility] on 03/30/24 13:37 UA Bilirubin 1 mg/dL Last Edit by Jr Moore [facility] on 03/30/24 13:37 UA Glucose 0 mg/dL Last Edit by Jr Moore [facility] on 03/30/24 13:37 Results Reviewed Results Reviewed: Laboratory Last Values Urine pH (Auto) 5.0 03/30/24 13:34 Specific [place] (Auto) 1.030 03/30/24 13:34 Urine Protein (Auto) 15 mg/dL 03/30/24 13:34 Glucose (UA)(Auto) 0 mg/dL 03/30/24 13:34 Urine Ketones (Auto) Positive 03/30/24 13:34 Urine Blood (Auto) 0 Zachery/uL 03/30/24 13:34 Urine Nitrite (Auto) Negative 03/30/24 13:34 Urine Bilirubin (Auto) 1 mg/dL 03/30/24 13:34 Urine Urobilinogen (Auto) 0.2 mg/dL 03/30/24 13:34 Leukocyte Esterase (Auto) 0 Violet/uL 03/30/24 13:34 Assessment & Plan Assessment & Plan (1) Nocturia: Code(s): R35.1 - Nocturia Category: Medical (2) Renal cyst: Code(s): N28.1 - Cyst of kidney, acquired Category: Medical (3) OAB (overactive bladder): Code(s): N32.81 - Overactive bladder Category: Medical Plan In office urinalysis results reviewed with the patient today; as noted above. PVR 0 mL. Patient reports be happy with current voiding parameters on 50 mg of Myrbetriq; will continue; refill provided. Discussed importance of limiting fluids 2-3 hours prior to bed to decrease episodes of nocturia. She currently denies any bothersome urinary issues or concerns. Follow-up in 6 months with PVR; or sooner with any issues, concerns, and or questions. Orders: Orders AMB Urinalysis Automated 03/30/24 Z13.9 - Encounter for screening, unspecified Medications: Refilled mirabegron ER (Myrbetriq) 50 mg PO DAILY 90 days 90 tabs 3RF Patient Instructions: The patient had an opportunity to ask questions regarding the treatment plan. All questions were answered. Physical exam, labs, and imaging were discussed and reviewed in detail. As well as risks, benefits, and discussion of treatment choices. No major barriers to understanding were identified. The patient expressed understanding and agreement with the above treatment plan. The patient was made aware they should contact our office by phone for worsening of their current condition, the appearance of new symptoms, or with any questions or concerns. Compliance is encouraged with any medications and follow up testing that is ordered. It is a privilege to be allowed the opportunity to participate in? your urological care.? Again, if you have any questions or concerns If you have any questions or concerns please do not hesitate to contact me. The office is [phone]. This note is constructed using voice recognition software. While every effort has been made to ensure accuracy business analysis consultant errors may have been included. Yours sincerely, MILAD Deshpande Coding Level of Care Code Est Pt Level 3 (04742) Diagnoses Nocturia R35.1 Renal cyst N28.1 OAB (overactive bladder) N32.81
== END 2024-03-30 14:12 | disposition home or self-care (01) ==
PROVIDERS: PCP Nurse Practitioner Family; Visit Provider Nurse Practitioner Family
DX: R35.1 Nocturia (principal); N28.1 Cyst of kidney, acquired; N32.81 Overactive bladder
CPT/HCPCS: 99213

== ENCOUNTER → 2024-03-30 12:54 | Outpatient (BNVA) | payer BC, SELFPAY | PROVIDERS: PCP Nurse Practitioner Family; Visit Provider Nurse Practitioner Family | DX: R35.1 Nocturia (principal); N28.1 Cyst of kidney, acquired; N32.81 Overactive bladder; Z79.899 Other long term (current) drug therapy | CPT/HCPCS: 81003 ==

== ENCOUNTER 2024-10-22 12:04 | Outpatient (AMB) | payer MEDICARE, SELFPAY ==
--- NOTE | 2024-10-22 12:44 | MHC.OFFVIS ---
Intake Visit Reasons: 6m/PVR Intake Note: Patient is present for 6m/PVR Urology Medication:ESTRADIOL,MIRABEGRON Antibiotic Allergy:PENICILLINS Blood Thinner:ASPIRIN Last PVR:15ML'S Todays PVR:0ML'S Cheese Weigher Required: No Allergies Penicillins Allergy (Mild, Verified 10/22/24 13:15) UNKNOWN lisinopril [LISINOPRIL] Allergy (Unknown, Verified 10/22/24 13:15) COUGH Medication List - Last Reconciled 10/22/24 by NICA Deshpande-STACIE aspirin (Adult Low Dose Aspirin) 81 mg PO DAILY atenolol 50 mg PO DAILY donepezil 5 mg PO DAILY estradiol 0.01%(0.1mg/gram) (Estrace) pea sized amount per urethra vaginal daily; 30 days fluticasone furoate-vilanterol 100-25 mcg/dose 1 ea inhalation DAILY gabapentin 400 mg PO BID losartan 25 mg PO DAILY mirabegron ER (Myrbetriq) 50 mg PO DAILY 90 days montelukast 10 mg PO DAILY pantoprazole 20 mg PO DAILY paroxetine HCl 40 mg PO DAILY ropinirole 0.25 mg PO BID simvastatin 20 mg PO BEDTIME HPI Comments Details: Ivelisse is a pleasant 84-year-old female patient of Dr. Bolden. She has a past medical history of dementia, asthma, hyperlipidemia, hypertension, overactive bladder, osteoarthritis, and urgency incontinence. She presents today to the office for follow-up regarding her lower urinary tract symptoms/overactive bladder. In discussion with the patient today she reports to be doing and feeling well. She discusses her ongoing issues with dementia. During last office visit patient had reported significant improvement in lower urinary tract symptoms with 50 mg of Myrbetriq daily however feels this has since changed. She reports feeling she continues with episodes of urinary urgency and urge incontinence despite compliance with 50 mg of Myrbetriq daily. In office urinalysis results reviewed with the patient today. PVR 0 mL. She also reports noting nocturia 2-3 times per night however endorses to be drinking fluids prior to bed. Previous workup has included a retroperitoneal ultrasound 08/25 noting right kidney with no calculi, lesions, and or hydronephrosis. The left kidney with no calculi or hydronephrosis. Tiny anechoic simple cyst is seen in inferior left renal cortex measuring 0.7 x 0.8 x 0.6 cm in size. Bosniak category 1, for which no follow-up imaging is recommended per radiology report. The bladder is partially distended. Bilateral ureteral jets are demonstrated. Pre void bladder volume is approximately 30 mL. She discusses living at the [facility] in [place] and really enjoys living there however feels her memory and dementia at times are worsening. She discusses being active within the community ([facility]) as well as at her residence. She states she continues working on her memory with activities daily such as reading, bingo, and crossword puzzles. She otherwise offers no other issues or concerns at this time. [facility] Medical History (Updated 10/22/24 @ 14:02 by MILAD Deshpande) Urgency incontinence Dementia Asthma Hyperlipidemia HTN (hypertension) OAB (overactive bladder) Primary osteoarthritis of left knee Primary osteoarthritis of right knee Surgical History History of surgery Social History Patient Tobacco Use Status: Former Tobacco user Review of Systems Const Reports as per HPI Eyes Reports no additional complaints ENT Reports no additional complaints Card Reports as per HPI Resp Reports no additional complaints GI Reports no additional complaints Reports as per HPI Musc Details: She reports following up with pain management in [place] for ongoing injections for her arthritis. Reports as per HPI Neuro Reports as per HPI Psych Reports no additional complaints Endo Reports no additional complaints Keaton/Lymph Reports no additional complaints Aller/Immun Reports no additional complaints Physical Exam Const General: cooperative, healthy appearing, comfortable, no acute distress, well developed, alert and awake Nutritional Appearance: overweight Orientation/consciousness: patient oriented x3 Limitations: ambulation with walker HEENT Head: Yes normal to inspection, Yes normocephalic and Yes atraumatic Ears: hearing grossly normal bilaterally Eyes General: appearance normal, both eyes and all related structures Neck Neck: Yes normal visual inspection and Yes trachea midline Chest Chest palpation & inspection: normal inspection of the chest Resp Effort & Inspection: normal respiratory effort and able to speak in complete sentences Cardio Rate: regular rate GI Inspection: Yes normal to inspection General: Yes no CVA tenderness Back/Spine/Pelvis Back: no CVA tenderness Skin General skin exam: no rashes or lesions noted Neuro General: patient oriented x3 Extrem General: Yes normal to inspection Psych Appearance: grossly normal Mental Status: mental status grossly normal Speech and movement: Normal speech and movement present and Clear speech present Affect: normal affect Attitude: cooperative Thought process: Normal thought process present Thought content: Normal thought content present Insight: Fair insight present (Psych) Judgement: Fair judgement present (Psych) Office Procedures Post Void Residual Post Residual Void Post Void Residual (PVR): 0 [id number] Void Residual by ultrasound Results AMB Urinalysis, Automated UA Leukoctes 0 Violet/uL Last Edit by Jr Moore [facility] on 10/22/24 13:13 UA Nitrite Negative Last Edit by Jr Moore [facility] on 10/22/24 13:13 UA Urobilinogen 0.2 mg/dL Last Edit by Jr Moore [facility] on 10/22/24 13:13 UA Protein 15 mg/dL Last Edit by Jr Moore [facility] on 10/22/24 13:13 UA pH 5.5 Last Edit by Jr Moore [facility] on 10/22/24 13:13 UA Blood 0 Zachery/uL Last Edit by Jr Moore [facility] on 10/22/24 13:13 UA Specific [place] 1.030 Last Edit by Jr Moore [facility] on 10/22/24 13:13 UA Ketone Negative Last Edit by Jr Moore [facility] on 10/22/24 13:13 UA Bilirubin 0 mg/dL Last Edit by Jr Moore [facility] on 10/22/24 13:13 UA Glucose 0 mg/dL Last Edit by Jr Moore [facility] on 10/22/24 13:13 Results Reviewed Results Reviewed: Laboratory Last Values Urine pH (Auto) 5.5 10/22/24 13:12 Specific [place] (Auto) 1.030 10/22/24 13:12 Urine Protein (Auto) 15 mg/dL 10/22/24 13:12 Glucose (UA)(Auto) 0 mg/dL 10/22/24 13:12 Urine Ketones (Auto) Negative 10/22/24 13:12 Urine Blood (Auto) 0 Zachery/uL 10/22/24 13:12 Urine Nitrite (Auto) Negative 10/22/24 13:12 Urine Bilirubin (Auto) 0 mg/dL 10/22/24 13:12 Urine Urobilinogen (Auto) 0.2 mg/dL 10/22/24 13:12 Leukocyte Esterase (Auto) 0 Violet/uL 10/22/24 13:12 Assessment & Plan Assessment & Plan (1) Nocturia: Code(s): R35.1 - Nocturia Category: Medical (2) OAB (overactive bladder): Code(s): N32.81 - Overactive bladder Category: Medical (3) Urinary urgency: Code(s): R39.15 - Urgency of urination Category: Medical (4) Urgency incontinence: Code(s): N39.41 - Urge incontinence Category: Medical (5) Renal cyst: Code(s): N28.1 - Cyst of kidney, acquired Category: Medical Plan In office urinalysis results reviewed with the patient today; as noted above. PVR 0 mL. Continue Myrbetriq as discussed and prescribed. Start Vesicare We discussed importance of timed/scheduled voiding given decrease in mobility We also discussed importance of limiting fluids 2-3 hours prior to bed to decrease episodes of nocturia. We discussed further treatment options and risks and benefits of these treatment options. Follow-up in 3 months with PVR; or sooner with any issues, concerns, and or questions. Orders: Orders AMB Urinalysis Automated Today Z13.9 - Encounter for screening, unspecified Medications: New solifenacin (Vesicare) 5 mg PO DAILY 30 days 30 tabs 3RF Patient Instructions: The patient had an opportunity to ask questions regarding the treatment plan. All questions were answered. Physical exam, labs, and imaging were discussed and reviewed in detail. As well as risks, benefits, and discussion of treatment choices. No major barriers to understanding were identified. The patient expressed understanding and agreement with the above treatment plan. The patient was made aware they should contact our office by phone for worsening of their current condition, the appearance of new symptoms, or with any questions or concerns. Compliance is encouraged with any medications and follow up testing that is ordered. It is a privilege to be allowed the opportunity to participate in? your urological care.? Again, if you have any questions or concerns If you have any questions or concerns please do not hesitate to contact me. The office is [phone]. This note is constructed using voice recognition software. While every effort has been made to ensure accuracy laundry room attendant errors may have been included. Yours sincerely, NICA Deshpande-STACIE Coding Level of Care Code Est Pt Level 4 (48954) Diagnoses Nocturia R35.1 OAB (overactive bladder) N32.81 Urinary urgency R39.15 Urgency incontinence N39.41 Renal cyst N28.1 CPT Codes Post Residual Void - PVR CPT Code: 87515-[id number] Void Residual by ultrasound ([id number])
== END 2024-10-22 13:22 | disposition home or self-care (01) ==
LOC: HO.HUSH 12:04
PROVIDERS: PCP Nurse Practitioner Family; Visit Provider Nurse Practitioner Family
DX: R35.1 Nocturia (principal); N32.81 Overactive bladder; R39.15 Urgency of urination; N39.41 Urge incontinence; N28.1 Cyst of kidney, acquired; Z13.9 Encounter for screening, unspecified
CPT/HCPCS: 99214

== ENCOUNTER → 2024-10-22 12:04 | Outpatient (BNVA) | payer MEDICARE, SELFPAY | PROVIDERS: PCP Nurse Practitioner Family; Visit Provider Nurse Practitioner Family | DX: N32.81 Overactive bladder (principal); N39.41 Urge incontinence; R35.1 Nocturia; N28.1 Cyst of kidney, acquired | CPT/HCPCS: 51798; 81003; 99212 ==

== ENCOUNTER 2025-01-22 13:08 | Outpatient (AMB) | payer MEDICARE, SELFPAY ==
--- NOTE | 2025-01-22 13:32 | A.OFFVIS_ITS ---
Intake Visit Reasons: 3m/PVR Intake Note: Patient presents today for follow up on: urgency, incontinence, nocturia, and OAB Urology Medication: Myrbetriq Antibiotic Allergy:PENICILLINS Blood Thinner:ASPIRIN PVR: 0ml's Supervisor Cloth Winding Required: No Accompanied by: Self / Same As Patient Allergies Penicillins Allergy (Mild, Verified 01/22/25 20:14) UNKNOWN lisinopril [LISINOPRIL] Allergy (Unknown, Verified 01/22/25 20:14) COUGH Medication List - Last Reconciled 01/22/25 by NICA Deshpande- albuterol sulfate 90 mcg/actuation inhalation atenolol 50 mg PO DAILY bupropion HCl XL mg PO DAILY cetirizine (All Day Allergy (cetirizine)) 10 mg PO DAILY PRN donepezil 5 mg PO DAILY fluticasone furoate-vilanterol 100-25 mcg/dose 1 ea inhalation DAILY losartan 25 mg PO DAILY mirabegron ER (Myrbetriq) 50 mg PO DAILY 90 days montelukast 10 mg PO DAILY paroxetine HCl 40 mg PO DAILY ropinirole 0.25 mg PO BID simvastatin 20 mg PO BEDTIME solifenacin (Vesicare) 5 mg PO DAILY 30 days HPI Comments Details: Ivelisse is a pleasant 84-year-old female patient of Dr. Bolden. She has a past medical history of dementia, asthma, hyperlipidemia, hypertension, overactive bladder, osteoarthritis, and urgency incontinence. She presents today to the office for follow-up regarding her lower urinary tract symptoms/overactive bladder. Of note, patient was seen approximately 3 months ago at which time at which time recommendations were made for low-dose VESIcare to be added to daily regimen of Myrbetriq as patient continues to feel she has an experiences urinary urgency and frequency. However, in discussion with the patient today she reports since her last office visit here she has since switched pharmacies due to her ongoing issues with potential worsening of dementia and or forgetfulness and never initiated the medication. She does continue to report episodes of urinary urgency and frequency. She denies hematuria, dysuria, foul smelling urine, changes to urinary stream, flank pain, fever, and or chills. We did discussed potential near future bladder diary as patient is reporting increase in memory impairment. In office urinalysis results reviewed with the patient today. PVR 0 mL. She also reports noting nocturia 2-5 times per night however endorses to be drinking fluids prior to bed. Previous workup has included a retroperitoneal ultrasound 08/25 noting right kidney with no calculi, lesions, and or hydronephrosis. The left kidney with no calculi or hydronephrosis. Tiny anechoic simple cyst is seen in inferior left renal cortex measuring 0.7 x 0.8 x 0.6 cm in size. Bosniak category 1, for which no follow- up imaging is recommended per radiology report. The bladder is partially distended. Bilateral ureteral jets are demonstrated. Pre void bladder volume is approximately 30 mL. She discusses living at the [facility] in [place] and really enjoys living there however feels her memory and dementia at times are worsening in his enquiring potential placement in long-term care facility. She discusses being active within the community ([facility]) as well as at her residence. She states she continues working on her memory with activities daily such as reading, bingo, and crossword puzzles. She otherwise offers no other issues or concerns at this time. Discussion Notes During today's visit, we discussed the patient's ongoing urinary incontinence and nocturia. The patient conveyed her challenges with medication adherence due to memory impairments, contributing to the underutilization of Solifenacin. I emphasized the importance of consistent medication management, explaining the potential benefits of Solifenacin in conjunction with Mirabegron for her symptoms. We reviewed her pharmacy switch to [facility], which should streamline her medication adherence. The patient was encouraged to ensure medication instructions are adhered to immediately upon receipt and revalidated the essentiality of maintaining care with her primary healthcare team due to her complex comorbidities. A jail was mentioned as a potential future consideration due to her increasing support needs. Plan Prescription of Solifenacin was initiated to manage the patient?s urinary incontinence, in addition to Mirabegron, utilizing [facility] for better adherence. This dual approach is designed to alleviate symptomatic nocturia and frequency. The patient agreed to this course of treatment, understanding the necessity of strict adherence for optimal results. The potential need for a monitored living situation in the future to manage risks better and ensure her safety and comfort was also discussed, given her current difficulties with independent living and mobility concerns. [facility] Medical History Urgency incontinence Dementia Asthma Hyperlipidemia HTN (hypertension) OAB (overactive bladder) Primary osteoarthritis of left knee Primary osteoarthritis of right knee Surgical History History of surgery Social History Patient Tobacco Use Status: Former Tobacco user Review of Systems Const Reports as per HPI Eyes Reports no additional complaints ENT Reports no additional complaints Card Reports as per HPI Resp Reports no additional complaints GI Reports no additional complaints Reports as per HPI Musc Details: She reports following up with pain management in [place] for ongoing injections for her arthritis. Reports as per HPI Neuro Reports as per HPI Psych Reports no additional complaints Endo Reports no additional complaints Keaton/Lymph Reports no additional complaints Aller/Immun Reports no additional complaints Physical Exam Const General: cooperative, healthy appearing, comfortable, no acute distress, well developed, alert and awake Nutritional Appearance: overweight Orientation/consciousness: patient oriented x3 Limitations: ambulation with walker HEENT Head: Yes normal to inspection, Yes normocephalic and Yes atraumatic Ears: hearing grossly normal bilaterally Eyes General: appearance normal, both eyes and all related structures Neck Neck: Yes normal visual inspection and Yes trachea midline Chest Chest palpation & inspection: normal inspection of the chest Resp Effort & Inspection: normal respiratory effort and able to speak in complete sentences Cardio Rate: regular rate GI Inspection: Yes normal to inspection General: Yes no CVA tenderness Back/Spine/Pelvis Back: no CVA tenderness Skin General skin exam: no rashes or lesions noted Neuro General: patient oriented x3 Extrem General: Yes normal to inspection Psych Appearance: grossly normal Mental Status: mental status grossly normal Speech and movement: Normal speech and movement present and Clear speech present Affect: normal affect Attitude: cooperative Thought process: Normal thought process present Thought content: Normal thought content present Insight: Fair insight present (Psych) Judgement: Fair judgement present (Psych) Office Procedures Post Void Residual Post Residual Void Post Void Residual (PVR): 0 [id number]-[id number] Void Residual by ultrasound Results AMB Urinalysis, Automated UA Leukoctes 0 Violet/uL Last Edit by Shadia Figueroa on 01/22/25 13:59 UA Nitrite Last Edit by Shadia Figueroa on 01/22/25 13:59 UA Urobilinogen 0.2 mg/dL Last Edit by Shadia Figueroa on 01/22/25 13:59 UA Protein 15 mg/dL Last Edit by Shadia Fgiueroa on 01/22/25 13:59 UA pH 5.5 Last Edit by Shadia Figueroa on 01/22/25 13:59 UA Blood 0 Zachery/uL Last Edit by Shadia Figueroa on 01/22/25 13:59 UA Specific [place] 1.030 Last Edit by Shadia Figueroa on 01/22/25 13:59 UA Ketone Last Edit by Shadia Figueroa on 01/22/25 13:59 UA Bilirubin 0 mg/dL Last Edit by Shadia Figueroa on 01/22/25 13:59 UA Glucose 0 mg/dL Last Edit by Shadia Figueroa on 01/22/25 13:59 Results Reviewed Results Reviewed: Laboratory Last Values Urine pH (Auto) 5.5 01/22/25 13:58 Specific [place] (Auto) 1.030 01/22/25 13:58 Urine Protein (Auto) 15 mg/dL 01/22/25 13:58 Glucose (UA)(Auto) 0 mg/dL 01/22/25 13:58 Urine Blood (Auto) 0 Zachery/uL 01/22/25 13:58 Urine Bilirubin (Auto) 0 mg/dL 01/22/25 13:58 Urine Urobilinogen (Auto) 0.2 mg/dL 01/22/25 13:58 Leukocyte Esterase (Auto) 0 Violet/uL 01/22/25 13:58 Assessment & Plan Assessment & Plan (1) Urgency incontinence: Code(s): N39.41 - Urge incontinence Category: Medical (2) Urinary urgency: Code(s): R39.15 - Urgency of urination Category: Medical (3) Nocturia: Code(s): R35.1 - Nocturia Category: Medical (4) OAB (overactive bladder): Code(s): N32.81 - Overactive bladder Category: Medical Plan In office urinalysis results reviewed with the patient today; as noted above. PVR 0 mL. Continue Myrbetriq. Recent prescription for VESIcare to current pharmacy. We discussed importance of timed/scheduled voiding given decrease in mobility We discussed importance of limiting fluids 2-3 hours prior to bed to decrease episodes of nocturia. We also discussed potential near future in office urodynamics and or bladder diary for further assessment evaluation. Follow-up in 3 months with PVR; or sooner with any issues, concerns, and or questions. Orders: Orders AMB Post Void Residual by ultrasound Today N39.41 - Urge incontinence AMB Urinalysis Automated Today Z13.9 - Encounter for screening, unspecified Medications: New solifenacin (Vesicare) 5 mg PO DAILY 30 days 30 tabs 3RF Patient Instructions: The patient had an opportunity to ask questions regarding the treatment plan. All questions were answered. Physical exam, labs, and imaging were discussed and reviewed in detail. As well as risks, benefits, and discussion of treatment choices. No major barriers to understanding were identified. The patient expressed understanding and agreement with the above treatment plan. The patient was made aware they should contact our office by phone for worsening of their current condition, the appearance of new symptoms, or with any questions or concerns. Compliance is encouraged with any medications and follow up testing that is ordered. It is a privilege to be allowed the opportunity to participate in? your urological care.? Again, if you have any questions or concerns If you have any questions or concerns please do not hesitate to contact me. The office is [phone]. This note is constructed using voice recognition software. While every effort has been made to ensure accuracy economics professor errors may have been included. Yours sincerely, MILAD Deshpande Coding Level of Care Code Est Pt Level 3 (21254) Complex EM visit Add On G2211 Diagnoses Urgency incontinence N39.41 Urinary urgency R39.15 Nocturia R35.1 OAB (overactive bladder) N32.81 CPT Codes Post Residual Void - PVR CPT Code: 58784-Vyph Void Residual by ultrasound ([id number])
== END 2025-01-22 14:17 | disposition home or self-care (01) ==
LOC: HO.HUSH 13:09
PROVIDERS: PCP Nurse Practitioner Family; Visit Provider Nurse Practitioner Family
DX: N39.41 Urge incontinence (principal); R39.15 Urgency of urination; R35.1 Nocturia; N32.81 Overactive bladder; Z13.9 Encounter for screening, unspecified
CPT/HCPCS: 99213; G2211

== ENCOUNTER → 2025-01-22 13:08 | Outpatient (BNVA) | payer MEDICARE, SELFPAY | PROVIDERS: PCP Nurse Practitioner Family; Visit Provider Nurse Practitioner Family | DX: R35.1 Nocturia (principal); N32.81 Overactive bladder; N39.41 Urge incontinence | CPT/HCPCS: 51798; 81003; 99212 ==

== ENCOUNTER 2025-04-24 12:54 | Outpatient (AMB) | payer MEDICARE, SELFPAY ==
--- NOTE | 2025-04-24 12:46 | A.OFFVIS_ITS ---
Intake Visit Reasons: 3m/PVR Intake Note: Patient presents today for 3 mo follow up on: incontinence, nocturia, and OAB Urology Medication: Myrbetriq,vesicare Antibiotic Allergy:PENICILLINS Blood Thinner:ASPIRIN PVR: 13 mls Microsoft Application Developer Required: No Accompanied by: Self / Same As Patient Allergies Penicillins Allergy (Mild, Verified 04/24/25 14:50) UNKNOWN lisinopril (LISINOPRIL) Allergy (Unknown, Verified 04/24/25 14:50) COUGH Medication List - Last Reconciled 04/24/25 by ANA DeshpandeP- albuterol sulfate 90 mcg/actuation inhalation atenolol 50 mg PO DAILY bupropion HCl XL mg PO DAILY cetirizine (All Day Allergy (cetirizine)) 10 mg PO DAILY PRN donepezil 5 mg PO DAILY fluticasone furoate-vilanterol 100-25 mcg/dose 1 ea inhalation DAILY losartan 25 mg PO DAILY montelukast 10 mg PO DAILY paroxetine HCl 40 mg PO DAILY ropinirole 0.25 mg PO BID simvastatin 20 mg PO BEDTIME vibegron (Gemtesa) 75 mg PO DAILY 30 days HPI Comments Details: Ivelisse is a pleasant 84-year-old female patient of Dr. Bolden. She has a past medical history of dementia, asthma, hyperlipidemia, hypertension, overactive bladder, osteoarthritis, and urgency incontinence. She presents today to the office for follow-up regarding her lower urinary tract symptoms/overactive bladder. Of note, patient was seen approximately 3 months ago at which time at which time recommendations were made for low-dose VESIcare to be added to daily regimen of Myrbetriq as patient continues to feel she has an experiences urinary urgency, frequency, and nocturia. In discussion with the patient today she reports she continues with episodes of nocturia and feels they have worsened over the last month. She reports episodes of nocturia up to 9 times per night. In office urinalysis results reviewed with the patient today 3+ leukocytes negative nitrates. We did discussed potential for UTI given increased episodes of nocturia over the last month. She discusses her ongoing worsening symptoms of dementia and forgetfulness. When asked she does report a history of sleep apnea however she has not been compliant with CPAP. We did discussed correlation of sleep apnea and nocturia. We also discussed further intervention to include in office cystoscopy and or urodynamics for further assessment evaluation. PVR today 13 mL. She also does endorse to be drinking fluids prior to bed. We did discussed importance of limiting fluids in relation to nocturia. Previous workup has included a retroperitoneal ultrasound 08/25 noting right kidney with no calculi, lesions, and or hydronephrosis. The left kidney with no calculi or hydronephrosis. Tiny anechoic simple cyst is seen in inferior left renal cortex measuring 0.7 x 0.8 x 0.6 cm in size. Bosniak category 1, for which no follow-up imaging is recommended per radiology report. The bladder is partially distended. Bilateral ureteral jets are demonstrated. Pre void bladder volume is approximately 30 mL. She discusses living at the [facility] in [place] and really enjoys living there however feels her memory and dementia at times are worsening and is enquiring potential placement in long-term care facility. She discusses being active within the community ([facility]) as well as at her residence. She states she continues working on her memory with activities daily such as reading, bingo, and crossword puzzles. She otherwise offers no other issues or concerns at this time. [facility] Medical History Urgency incontinence Dementia Asthma Hyperlipidemia HTN (hypertension) OAB (overactive bladder) Primary osteoarthritis of left knee Primary osteoarthritis of right knee Surgical History History of surgery Social History Patient Tobacco Use Status: Former Tobacco user Review of Systems Const Reports as per HPI Eyes Reports no additional complaints ENT Reports no additional complaints Card Reports as per HPI Resp Reports no additional complaints GI Reports no additional complaints Reports as per HPI Musc Details: She reports following up with pain management in [place] for ongoing injections for her arthritis. Reports as per HPI Neuro Reports as per HPI Psych Reports no additional complaints Endo Reports no additional complaints Keaton/Lymph Reports no additional complaints Aller/Immun Reports no additional complaints Physical Exam Const General: cooperative, healthy appearing, comfortable, no acute distress, well developed, alert and awake Nutritional Appearance: overweight Orientation/consciousness: patient oriented x3 Limitations: ambulation with walker HEENT Head: Yes normal to inspection, Yes normocephalic and Yes atraumatic Ears: hearing grossly normal bilaterally Eyes General: appearance normal, both eyes and all related structures Neck Neck: Yes normal visual inspection and Yes trachea midline Chest Chest palpation & inspection: normal inspection of the chest Resp Effort & Inspection: normal respiratory effort and able to speak in complete sentences Cardio Rate: regular rate GI Inspection: Yes normal to inspection General: Yes no CVA tenderness Back/Spine/Pelvis Back: no CVA tenderness Skin General skin exam: no rashes or lesions noted Neuro General: patient oriented x3 Extrem General: Yes normal to inspection Psych Appearance: grossly normal Mental Status: mental status grossly normal Speech and movement: Normal speech and movement present and Clear speech present Affect: normal affect Attitude: cooperative Thought process: Normal thought process present Thought content: Normal thought content present Insight: Fair insight present (Psych) Judgement: Fair judgement present (Psych) Office Procedures Post Void Residual Post Residual Void Post Void Residual (PVR): 13 [id number]-[id number] Void Residual by ultrasound Results AMB Urinalysis, Automated UA Leukoctes 500 Violet/uL Last Edit by Odessa Connor MA on 04/24/25 13:37 UA Nitrite Negative Last Edit by Odessa Connor MA on 04/24/25 13:37 UA Urobilinogen 0.2 mg/dL Last Edit by Odessa Connor MA on 04/24/25 13:37 UA Protein 30 mg/dL Last Edit by Odessa Connor MA on 04/24/25 13:37 UA pH 6.0 Last Edit by Odessa Connor MA on 04/24/25 13:37 UA Blood 25 Zachery/uL Last Edit by Odessa Connor MA on 04/24/25 13:37 UA Specific [place] 1.025 Last Edit by Odessa Connor MA on 04/24/25 13:37 UA Ketone Negative Last Edit by Odessa Connor MA on 04/24/25 13:37 UA Bilirubin 0 mg/dL Last Edit by Odessa Connor MA on 04/24/25 13:37 UA Glucose 0 mg/dL Last Edit by Odessa Connor MA on 04/24/25 13:37 Results Reviewed Results Reviewed: Laboratory Last Values Urine pH (Auto) 6.0 04/24/25 13:16 Specific [place] (Auto) 1.025 04/24/25 13:16 Urine Protein (Auto) 30 mg/dL 04/24/25 13:16 Glucose (UA)(Auto) 0 mg/dL 04/24/25 13:16 Urine Ketones (Auto) Negative 04/24/25 13:16 Urine Blood (Auto) 25 Zachery/uL 04/24/25 13:16 Urine Nitrite (Auto) Negative 04/24/25 13:16 Urine Bilirubin (Auto) 0 mg/dL 04/24/25 13:16 Urine Urobilinogen (Auto) 0.2 mg/dL 04/24/25 13:16 Leukocyte Esterase (Auto) 500 Violet/uL 04/24/25 13:16 Assessment & Plan Assessment & Plan (1) Nocturia: Code(s): R35.1 - Nocturia Category: Medical (2) OAB (overactive bladder): Code(s): N32.81 - Overactive bladder Category: Medical Plan In office urinalysis results with the patient today; as noted above; will send for urine culture; will await results for potential treatment PVR 13 mL We did discussed importance of compliance in CPAP in correlation of nocturia with sleep apnea. Stop Myrbetriq and VESIcare. Start Gemtesa. We did discussed potential near future in office cystoscopy and or urodynamics for further assessment evaluation. We discussed the importance of limiting fluids 2-3 hours prior to bed to decrease episodes of nocturia. We discussed bladder triggers and irritants. Follow-up in 1-3 months with PVR; or sooner with any issues, concerns, and or questions. Orders: Orders AMB Urinalysis Automated Today Z13.9 - Encounter for screening, unspecified AMB Post Void Residual by ultrasound Today N39.41 - Urge incontinence Urine Culture Today R39.15 - Urgency of urination Medications: New vibegron (Gemtesa) 75 mg PO DAILY 30 tabs 3RF 30 days N32.81 - Overactive bladder Discontinued solifenacin (Vesicare) Discontinued Reason: Doctor's Order 5 mg PO DAILY 30 days 30 tabs 3RF mirabegron ER (Myrbetriq) Discontinued Reason: Doctor's Order 50 mg PO DAILY 90 days 90 tabs 3RF Patient Instructions: The patient had an opportunity to ask questions regarding the treatment plan. All questions were answered. Physical exam, labs, and imaging were discussed and reviewed in detail. As well as risks, benefits, and discussion of treatment choices. No major barriers to understanding were identified. The patient expressed understanding and agreement with the above treatment plan. The patient was made aware they should contact our office by phone for worsening of their current condition, the appearance of new symptoms, or with any questions or concerns. Compliance is encouraged with any medications and follow up testing that is ordered. It is a privilege to be allowed the opportunity to participate in? your urological care.? Again, if you have any questions or concerns If you have any questions or concerns please do not hesitate to contact me. The office is [phone]. This note is constructed using voice recognition software. While every effort has been made to ensure accuracy barrel assembler errors may have been included. Yours sincerely, MILAD Deshpande Coding Level of Care Code Est Pt Level 4 (31713) Complex EM visit Add On G2211 Diagnoses Nocturia R35.1 OAB (overactive bladder) N32.81 CPT Codes Post Residual Void - PVR CPT Code: 75700-Innc Void Residual by ultrasound ([id number])
--- OUTSIDE RECORDS SUMMARY | 2025-04-24 13:17 | XMS_ITS | Data Portability ---
Author Organization [place] - [facility] Address [address] [place] [id number] Care Team Providers Care Psych Np Name Role Phone OUMOU PIZANO Primary Care Provider Assessment Encounter Date Assessment Date Assessment LastModified by Organization Details LastModified Time 10/13/2019 10/13/2019 Overview/History : Pt is a 79yo F with PMH sig for Asthma, HLD, HTN, Anemia, FRANDY and Hypersomnia. Pt reports that she has been having intermittent diarrhea for the last 2 weeks or so. She reports some dry heaving but denies any vomiting. Last episode of diarrhea was this morning after she ate some toast. She states that she feels very tired and weak and gets dizzy after she has been up and moving for a while. She denies dizziness with position changes. She states overall she thinks she is getting better but just wanted to be checked out given how long her sx have been going on. Exam: Pt is A/Ox3, forgetful at times, VSS, HRR, resp reg and unlabored on RA, lungs CTA bilat, HEENT exam pos for mild effusions to the TMs, abd is soft, non-tender, non-distended, +BSx4, EKG shows sinus katie, most likely r/t pt's cardiac medications. DDx considered, but not limited to: Gastroenteritis: likely given intermittent diarrhea that seems to be improving Norovirus: possible given length of time of sx and reports of sweats and chills Food Posioning: unlikely gievn length of time of sx. Dehydration: not noted with BMP Work up/Results: BMP: WNL EKG: sinus katie Plan/Discussion: Given c/o dizziness with recurrent diarrhea pt given 500ml of IVF for sx control and comfort. Pt reassured that labs, EKG and physical exam were WNL. Pt advised to follow the BRAT diet and to use imodium OTC as needed for loose stool. Patients PCP contacted and updated on patient status. Patient verbalized understanding of discharge instructions and when to follow up with PCP/911/ED as needed. Patient in agreement with current plan and treatment. In order to obtain further information and compare any laboratory results/values, I have accessed patient records on the [facility]. This information was pertinent in my medical decision making today. Time On Scene with Patient: 00:52:05 jed Not available 10/13/2019 22:45:26 03/24/2020 03/24/2020 Overview/History : 79-year-old female with history of chronic back pain the herniated disk repair with 1 month of the right leg pain and paresthesias the. Denies sensory deficit, trauma, changes to bowel or bladder function. Exam: Uncomfortable appearing elderly female, afebrile. Heart sounds regular, lungs clear. No pain with palpation through lower thoracic, lumbar spine, left the lumbar paraspinal muscles, left SI joint. Tender to palpation about right lumbar paraspinal muscles, pain with palpation about right SI joint which causes radiation of pain down the leg reproduces patient's symptoms. The positive right SLR. No edema noted to the lower extremities. Mild varicosities noted throughout both lower legs. Patellar reflexes normal bilaterally. DDx considered, but not limited to: Consider lumbar radiculopathy. Consider SI joint dysfunction likely causing paresthesias. Consider disc herniation, patient does have a history of this however nobody to palpation essentially along the disc spaces making less likely. The Work up/Results: Plan/Discussion: Symptoms appear inflammatory in nature and reproducible on exam on the SI joint. Patient received prednisone 40 mg during visit with 4 additional days to be completed afterwards. Advise ice or heat off-and-on throughout the day for symptomatic relief. Continue OTC acetaminophen/pa ckage direction for symptomatic relief. Patient advised to contact PCP and pain management and follow the for further treatment. The prednisone may cause increased appetite, moodiness, jitteriness. Patient instructed to call if symptoms worsen or do not improve; patient acknowledges understands and agrees with plan. Note created with voice recognition software and may contain grammatical errors due to this. Patients PCP contacted and updated on patient status. Patient verbalized understanding of discharge instructions and when to follow up with PCP/911/ED as needed. Patient in agreement with current plan and treatment. Proper Personal Protective Equipment (PPE), including gloves, eye protection and masks were donned and doffed appropriately and all equipment cleaned using approved technique with germicidal disposable wipes prior to and after care of this patient according to [facility]'s infection prevention protocols. In order to obtain further information and compare any laboratory results/values, I have accessed old patient records. This information was pertinent in my medical decision making today. [email or web address] Not available 03/24/2020 10:48:32 Plan of Treatment Reminders Order Date Submit Date Provider Last Modified By Organization Details Last Modified Time Details Appointments None recorded. Lab BMP + ionized calcium, serum or plasma 2019 jed [facility], [address] [place] [address], [id number], 0 13:50:24 Referral None recorded. Procedures None recorded. Surgeries None recorded. Imaging None recorded. Medication Orders prednison e 10 mg tablet 2019 [email or web address] Not available 0 12:04:58 prednison e 20 mg tablet 2019 020 INTERFACE [facility], [address] [place], [address], 0 10:31:40 sodium chloride 0.9 % intraveno us solution [facility] [address] [place], [address], 0 10:13:21 Patient TargetsNo targets recorded. Patient Instructions Encounter Date Encounter Id Patient Instructions Last Modified By Organization Details Last Modified Time 10/13/2019 [id number] Acute Nausea and Vomiting/Diarrhea BASIC INFORMATION Acute nausea and vomiting often start suddenly, worsen quickly, and last a few hours to 24 hours. Nausea and vomiting most often occur together, although they can occur alone. Cases of acute nausea and vomiting are often from gastrointestinal viruses such as norovirus, rotavirus and influenza. Less often it can be caused by toxins released from food that goes bad as well as some types of bacteria and parasites. Diarrhea can also occur. Your nurse practitioner will conduct a careful history to help determine if you have one of the more serious causes. The cause of your nausea and vomiting may be unknown. INSTRUCTIONS Medicines: 1) Anti-nausea: You may have been given a prescription for an anti nausea medicine such as Zofran, Phenergan or Compazine. These can be used every 6-8 hours to help prevent nausea and vomiting. They can make you sleepy, so do not drive after taking them. Be sure to read all of the drug information from the pharmacy. 2) Tylenol: Low grade fever is common with acute nausea and vomiting. You may use Tylenol, per the recommended dosing on the label, to help control fever. If you have liver disease, do not use Tylenol. Ask your [employer] how to address fever if you are concerned about Tylenol use. 3) Anti-diarrheal medicines: These are available [id number], but in some cases are not recommended and can even worsen some cases of intestinal problems. Ask your [employer] CONSULTANT if you should use them. In children under 12, the only anti-diarrheal that should be considered is Kaopectate. Diet: 1) For the next 12-24 hours, take clear liquids only. No dairy and no caffeinated beverages. After you have not vomited for a complete hour (either with or without the help of the anti-nausea medicine), begin by taking one tablespoon of clear liquid every 15 minutes for one hour. If you are able to tolerate this, you may increase the amount to 2 tablespoons every hour for the next 2 hours. 2) Clear liquids such as gatorade, pedialyte or broth are recommended because of the electrolytes and sugars that will help replenish the losses from vomiting and diarrhea. 3) If you are able to tolerate clear liquids as instructed above, you may begin to take a bland diet. Plain pasta/noodles or toast are suggestions. If you have had diarrhea, bananas, rice and applesauce are suggested as these can help make the stools more solid. Avoid greasy, fatty or fried foods FOLLOW UP You should make an appointment to see your primary care provider within 24 hours or sooner for worsening condition as described below. If you do not have a primary care doctor, you should follow up with one of the PCP suggestions [facility]. SEEK CARE IMMEDIATELY IF: 1) You are still unable to tolerate any oral intake after 24 hours 2) You have blood in your vomit or stool 3) You develop severe abdominal pain that does not go away after an episode of vomiting or diarrhea 4) You have severe dizziness, heart palpitations or are passing out 5) You develop severe muscle cramps or weakness 6) You have not made urine in over 24 hours If you develop any new or worsening symptoms and need after hours care, please go to nearest ER and/or call 911. If you have additional concerns or develop a change in your condition between 8am-10pm, please call [facility] at [phone] to help navigate your care. Thank you for your visit with [facility] today. You were seen today for abdominal pain, nausea, vomiting and/or diarrhea. Medications may have been administered and lab tests may have been performed. At this time, we do not see evidence of a serious surgical or infectious cause of your symptoms. However, lab tests and an evaluation cannot always exclude appendicitis or other serious causes of abdominal pain. Please see a medical professional in 12-24 hours to be re-examined. Seek immediate medical attention for increased pain, vomiting or fever. If you develop any new or worsening symptoms and need after hours care, please go to nearest ER and/or call 911. If you have additional concerns or develop a change in your condition between 8am-10pm, please call [facility] at [phone] to help navigate your care. jed Not available 10/13/2019 13:14:39 Reason for Referral None Reported. Results Created Date Observation Date Name Description Value Unit Range Abnormal Flag Note LastModifiedBy Organization Detail LastModifiedTime 10/13/19 20 10/13/2019 BMP + ioniz ed calci um, serum or plasm a Na 141 mmol/ L 138-14 6 Not Available [facility] [address], [place], [address], 10/13/2019 13:14:42 10/13/19 20 10/13/2019 BMP + ioniz ed calci um, serum or plasm a K 4.2 mmol/ L 3.5-4. 9 Not Available [facility] [address], [place], [address], 10/13/2019 13:14:42 10/13/19 20 10/13/2019 BMP + ioniz ed calci um, serum or plasm a cL 105 mmol/ L 98-109 Not Available [facility] [address] [place], [address], 10/13/2019 13:14:42 10/13/19 20 10/13/2019 BMP + ioniz ed calci um, serum or plasm a ica 1.25 mmol/ L 1.12-1 .32 Not Available [facility] [address] [place], [address], 10/13/2019 13:14:42 10/13/19 20 10/13/2019 BMP + ioniz ed calci um, serum or plasm a TCO2 28 mmol/ L 24-29 Not Available [facility] [address] [place], [address], 10/13/2019 13:14:42 10/13/19 20 10/13/2019 BMP + ioniz ed calci um, serum or plasm a glu 118 mg/dL 70-105 Not Available [facility] [address] [place], [address], 10/13/2019 13:14:42 10/13/19 20 10/13/2019 BMP + ioniz ed calci um, serum or plasm a BUN 16 mg/dL 8-26 Not Available [facility] [address] [place], [address], 10/13/2019 13:14:42 10/13/1910/13/2019 BMP + ioniz ed calci um, serum or plasm a crea 0.6 mg/dL .6-1.3 Not Available [facility] [address] [place], [address], 10/13/2019 13:14:42 10/13/19 20 10/13/2019 BMP + ioniz ed calci um, serum or plasm a HCT 43 %_pcv 38-51 Not Available [facility] [address] [place], [address], 10/13/2019 13:14:42 10/13/19 20 10/13/2019 BMP + ioniz ed calci um, serum or plasm a Hb 14.6 g/dL 12-17 Not Available [facility] [address] [place], [address], 10/13/2019 13:14:42 10/13/19 20 10/13/2019 BMP + ioniz ed calci um, serum or plasm a angap 12 mmol/ L 10-20 Not Available [facility] [address], [place], [address], 10/13/2019 13:14:42 10/19/19 elect rocar diogr am No observ ation record ed. BARCODE Not Available 2019 15:19:57 10/19/19 elect rocar diogr am No observ ation record ed. BARCODE Not Available 2019 15:19:57 Result Notes None recorded. Problems Name Problem SNOMED Code Status Onset Date Resolution Date Notes Provider Name and Address Organization Details Recorded Time Hypertensive disorder 49765585 Active 2019 JAY HAND NP [address] [place], [address], [place] [facility] 0 13:12:25 Problem Notes None recorded. Procedures Surgical History Date Name Laterality Status Provider Name and Address Organization Details Recorded Time 10/13/19 20 IV Start Procedure - completed JAY HAND NP [address] [place], [address], [place] [facility] 10/13/2019 13:26:46 10/13/19 ECG Interpretation - completed JAY HAND NP [address] [place], [address], [place] [facility] 10/13/2019 13:50:05 Imaging Results None recorded. Procedure Notes None recorded. Medical Equipment None Reported. Allergies Allergen ID Allergen Name Allergen Category Reaction Reaction Severity Criticality Documentation Date Start Date Code Code System Note Provider Name and Address Organization Details Recorded Time 98134 Product containin g penicilli n (product) medicatio n Not available Not available Not available 10/13/2019 03779 8001 SNOMED JAY HAND , [employer] [address], [place], [place], [address], [place] [facility] 0 13:05:22 32351 lisinopri l medicatio n Not available Not available Not available 10/13/2019 27985 RxNorm JAY HAND , [employer] [address], [place], [place], [address], [place] [facility] 0 13:05:27 Medications Name Sig Start Date Stop Date Status Note LastModified by Organization Details LastModified Time prednisone 10 mg tablet 40 mg PO administe red on scene. Time administe red: 10:28 2019 active Not Available Not Available Not Avai lable tizanidine 2 mg tablet active Not Available Not Available Not Available diltiazem CD 240 mg capsule,ext ended release 24 hr active Not Available Not Available Not Available prednisone 20 mg tablet Take 2 tablets every day by oral route for 4 days. active Not Available Not Available No t Available gabapentin 400 mg capsule 10/13 completed Not Available Not Available Not Available acetaminoph en 300 mg-codeine 30 mg tablet active Not Available Not Available Not Available pantoprazol e 20 mg tablet,james yed release active Not Available Not Available Not Available ropinirole 0.25 mg tablet active Not Available Not Available Not Available simvastatin 20 mg tablet active Not Available Not Available Not Available losartan 25 mg tablet active Not Available Not Available No t Available montelukast 10 mg tablet active Not Available Not Available Not Available gabapentin 100 mg capsule active Not Available Not Available Not Available sodium chloride 0.9 % intravenous solution 500ml administe red on scene. Time administe red: 1320 03/24 completed Not Available Not Available Not Available albuterol sulfate HFA 90 mcg/actuati on aerosol inhaler active Not Available Not Available Not Available paroxetine 40 mg tablet active Not Available Not Available Not Available fluticasone propionate 50 mcg/actuati on nasal spray,suspe nsion active Not Available Not Available Not Available atenolol 50 mg tablet active Not Available Not Available No t Available oxycodone 5 mg tablet active Not Available Not Available No t Available bupropion HCl XL 150 mg 24 hr tablet, extended release active Not Available Not Available Not Available Symbicort 160 mcg-4.5 mcg/actuati on HFA aerosol inhaler active Not Available Not Available Not Available Vitals Date Recorded Respiratory rate Body temperature Oxygen saturation Oxygen saturation in Arterial blood by Pulse oximetry Heart rate Systolic And Diastolic Provider Name and Address Organization Details Last Updated DateTime 0 27 /min 99.1 [degF] 98 % 98 % 60 /min 100/64 mm[Hg] Not Available [facility] 0 13:06:12 Date Recorded Heart rate Oxygen saturation Oxygen saturation in Arterial blood by Pulse oximetry Respiratory rate Body temperature Systolic And Diastolic Provider Name and Address Organization Details Last Updated DateTime 0 98 /min 98 % 98 % 18 /min 98 [degF] 158/98 mm[Hg] Not Available [facility] 0 10:17:24 Social History Question Answer Notes LastModified by Organizat ion Details LastModified Time Tobacco Smoking Status Former Smoker JAY HAND, [employer] [address], [place], [address], [place] [facility] 10/13/2019 13:12:34 Do You Have An Advance Directive? Yes Information not available 10/13/2019 What Is Your Code Status? Full Code Information not available 10/13/2019 Drugs Abused None Information not available 10/13/2019 How Many Days In The Past Year Have You Had A Heavy Drinking Consumption (4+ Female, 5+ Male)? 0 Information not available 10/13/2019 Within The Past 12 Months, Has It Happened That The Food You Bought Just Didn't Last And You Didn't Have Money To Get More. No Information not available 10/13/2019 Within The Past 12 Months, Have You Worried That Your Food Would Run Out Before You Got Money To Buy More. No Information not available 10/13/2019 Fall Risk: Do You Feel Unsteady When Standing Or Walking? Yes Information not available 10/13/2019 We Know That How And When People Interact With Friends And Family Can Be Very Different From Person To Person. How Often Do You Have The Opportunity To See Or Talk To People That You Care About And Feel Close To? (Ex: Talking To Friends On The Phone Or Visiting Friends Or Family Or Going To Baptism Or Club Meetings) 5 Or More Times Per Week jed Information not available 10/13/2019 We Know From Many Of Our Patients That Covering All Of Their Costs Can Be Difficult At Times. This Can Cause Stress And Impact Health. In The Past Year, Have You Been Unable To Get Any Of The Following When It Was Really Needed? No Information not available 10/13/2019 What Is Your Housing Situation Today? I Have Housing Information not available 10/13/2019 Would You Like Help Connecting To Resources? None Information not available 10/13/2019 Marital Status rivasky Informatio n not available 10/13/2019 Sex: Unknown Functional Status None recorded. Mental Status None recorded. Family History Relationship Description Onset Age of this Age Resolved Age Notes LastModified by Organization Details LastModified Time Mother Hypertensive disorder [email or web address] Not available 10/13 13:14:30 Medical History Condition Response Depression Y High Cholesterol Y Asthma Y Hypertension Y Gynecological HistoryNo gynecological history recorded. Obstetrics History GPAL:G 0 P 0 0 0 0 Past Encounters Encounter ID Performer Location Encounter Start Date Encounter Closed Date Diagnosis/Indication Diagnosis SNOMED-CT Code Diagnosis ICD10 Code Diagnosis Note [id number] JAY HAND NP [facility] [address] [place] [address] 10/13/2019 13:01:27 10/15/2019 12:47:22 Diarrhea 94909478 R19.7 Dizziness present 524450 006 R42 Viral gastroenteritis 11 3224823 A08.4 Sinus bradycardia 174006 05 R00.1 [id number] BETHANY ZAMARRIPA [facility] [address] [employer] [place] [address] 03/24/2020 10:12:38 03/24/2020 16:17:28 Lumbar radiculopathy 443701994 M54.16 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 35312481 M46.1 Health Concerns Section Related Observation LastModified by Organization Detai ls LastModified Time None Recorded Concern Status LastModified by Organization Details LastModified Time None Recorded Advance Directives Directive Y: Payers Insurance Date Sequence Insurance Name Policy Number Policy Glover Covered Member ID Glover Member ID Guarantor Name 10/13/2019 1 *SELF PAY* Ivelisse Klamath [id number] Ivelisse Klamath 10/13/2019 1 [place] Ivelisse Klamath [id number] Ivelisse Klamath 03/24/2020 2 [place] [id number] Ivelisse Klamath [id number] Ivelisse Klamath 10/13/2019 1 [place]MEDICARE [place]EMENT HMO) Ivelisse Klamath [id number] Ivelisse Klamath 10/13/2019 2 [place] Ivelisse Klamath [id number] Ivelisse Klamath 03/24/2020 1 [place] Ivelisse E Klamath [id number] Ivelisse Klamath Notes Date Note Type Note Provider Name and Address Organization Details Recorded Time 10/13/2019 text/html Pt reports that she has been having diarrhea and nausea with dry heaving on and off for about 2 weeks. Reports she has been having intermittent ARGUETA, states right now she has no energy and feels generally weak. Reports that she is having sweats and chills and intermittent dizziness. Denies any dizziness at time of visit but reports she does feel lightheaded. Pt states she ate some toast today and it went right through her. Reports that she has had a mild dry cough and sneezing off and on for the last 2 weeks as well. Reports yesterday she had a little sore throat and pain in the right ear but none today. Pt denies any SOB as long as she takes her inhalers. Pt denies any recent antibiotic use or travel outside of the country. JAY HAND NP [address], [place], [address], [place] [facility] 10/13/2019 22:45:30 03/24/2020 text/html 79-year-old tracy sanchez presents for evaluation leg pain. Reports about 1 month of right leg pain. Reports chronic low back pain and had surgery in 1996 for herniated disc which had improved but returned after 5 years. Reports pain and numbness of entire leg. States feels as if there is a ball under the foot with standing or walking. Denies trauma, changes to bowels or bladder, sensory deficit. Reports pain is better upon standing or when lying supine. States has been using Tylenol and multiple muscle rubs for relief with out effect. Denies fever, chest pain, palpitations, shortness of breath. Reports dizziness and nausea for the past 2 days and believes it is due to not sleeping. BETHANY ZAMARRIPA [address], [place], [address], [place] [facility] 03/24/2020 10:49:14 OBGyn Episode No OBEpisode recorded.
== END 2025-04-24 13:26 | disposition home or self-care (01) ==
PROVIDERS: PCP Nurse Practitioner Family; Visit Provider Nurse Practitioner Family
DX: R35.1 Nocturia (principal); N32.81 Overactive bladder; Z13.9 Encounter for screening, unspecified
CPT/HCPCS: 99214; G2211

== ENCOUNTER 2025-04-24 12:54 | Outpatient (REF) | payer MEDICARE, SELFPAY | END 2025-04-24 12:55 | disposition home or self-care (01) | LOC: HO.LNP 12:54 | PROVIDERS: PCP Nurse Practitioner Family; Visit Provider Nurse Practitioner Family | DX: R39.15 Urgency of urination (principal); N32.81 Overactive bladder; R35.1 Nocturia; Z13.89 Encounter for screening for other disorder; Z79.899 Other long term (current) drug therapy | CPT/HCPCS: 51798; 81003; 87086; 99212 ==

== ENCOUNTER 2025-05-01 13:39 | Emergency (ER) | payer MEDICARE, SELFPAY ==
--- NOTE | ~2025-05-01 | CT_ITS ---
EXAMINATION: CT CERVICAL SPINE WITHOUT CONTRAST CLINICAL INFORMATION: Fall, head trauma COMPARISON: April 06, 2020 CT and thyroid ultrasound April 28, 2020 TECHNIQUE: Axial imaging was performed from the base of the skull through T2 without IV contrast. Coronal and sagittal reformatted images were generated from the original axial data set. ALARA: The examination used one or more of the following radiation dose reduction techniques: Automated exposure control, iterative reconstruction, and/or adjustment of mA and/or KV. DLP: 1045 mGY*cm FINDINGS: Lung apexes demonstrate interlobular septal thickening and groundglass mosaic pattern The solid nodule in the right thyroid gland measures 3.0 cm, previously 2.6 cm. There is chondrocalcinosis involving the transverse ligament and the disc at C4-5, C5-6, and possibly C6-7. Multilevel degenerative disc disease and facet arthropathy has increased since the prior examination and is most severe at C3, C4-5, and C5-6. No fracture is identified. CT/CT cervical spine wo IV con IMPRESSION: Right thyroid gland nodule, increased in size. Ultrasound was performed April 2020 and FNA was recommended. Correlate with history. 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 No acute abnormality. Changes in the lung apex could be related to pulmonary vascular congestion. Electronically signed by: Shiva Fajardo MD 05/01/2025 03:22 PM EDT
--- NOTE | ~2025-05-01 | CT_ITS ---
EXAMINATION: CT HEAD WITHOUT CONTRAST CLINICAL INFORMATION: Fall, head trauma COMPARISON: April 06, 2020 TECHNIQUE: Contiguous axial imaging was performed from the skull base to vertex without intravenous administration of contrast. This CT examination was performed using dose optimization techniques as appropriate, variously including the following: *Automated exposure control *Adjustment of mA and/or kV according to patient size (this includes techniques or standardized protocols for targeted exams where dose is matched to indication/reason for exam; i.e. extremities or head) *Use of iterative reconstruction technique DLP: 1045 mGY*cm FINDINGS: There is no acute ischemic change. There is a chronic lacunar infarct in the region of the right caudate nucleus and the anterior gayathri of the internal capsule that was not present on the prior. There is no intracranial hemorrhage. There is no mass-effect or midline shift. There is mild generalized atrophy of the cerebrum and moderate atrophy of cerebellum, unchanged from the prior. Basal cisterns and ventricles are within normal limits for age/cerebral volume. Orbits are symmetrical and unremarkable. Small mucous retention cyst in the posterior wall the right maxillary sinus is again seen. Paranasal sinuses and mastoid air cells are otherwise pneumatized. There are no bony abnormalities. CT/CT head/brain wo IV con IMPRESSION: No acute intracranial abnormality. There is a chronic lacunar infarct in the region of the right caudate nucleus and the anterior gayathri of the internal capsule that was not present on the prior. Moderate cerebellar atrophy, chronic. Electronically signed by: Shiva Fajardo MD 05/01/2025 03:09 PM EDT
[2025-05-01 13:48] VITALS: BP 135/70; PULSE 64; O2SAT 94
[2025-05-01 13:52] VITALS: BP 125/63; PULSE 60; RESP 22; TEMP 36.7; O2SAT 94; BMI 30.7
--- NOTE | 2025-05-01 14:08 | PC.NURSE ---
Pt roomed changed and placedon fulll monitor- NDR no ectopy- denies any complaints except ARGUETA 12/10. Pt with small swelling back left occipital area. No opening/lac.
--- NOTE | 2025-05-01 14:10 | ED_ITS ---
HPI - General Adult General Chief complaint: Fall Stated complaint: Fall w/ HS, -LOC, -thinners Time Seen by Provider: 05/01/25 14:10 Source: patient and EMS Mode of arrival: EMS Limitations: no limitations History of Present Illness ED Provider: Oksana Yi PA-C HPI narrative: Patient is an 84 year old assigned female at with a history of Alzheimer's dementia, HTN, HLD, and OAB presenting to the emergency department today after a trip and fall. Patient states that she was walking home when she tripped trying to step over a curb and hit the back of her head. Patient denies any dizziness, lightheadedness, abdominal pain, nausea, vomiting, fever, chills, blurry vision, double vision, loss of vision, chest pain, difficulty breathing, shortness of breath, back pain, night sweats, pain with urination, increased urinary frequency, increased urinary urgency, blood in her urine or stool, syncope or a near syncopal episode, bowel incontinence, bladder incontinence, or any other complaints at this time. Relieving factors: none Exacerbating factors: none Associated symptoms: denies other symptoms Treatments prior to arrival: none Related Data Home Medications ?Medication ?Instructions ?Recorded ?Confirmed atenolol 50 mg tablet 50 mg PO DAILY 03/05/2104/03 losartan 25 mg tablet 25 mg PO DAILY 03/05/2104/03 montelukast 10 mg tablet 10 mg PO DAILY 03/05/2104/03 paroxetine HCl 40 mg tablet 40 mg PO DAILY 03/05/21 ropinirole 0.25 mg tablet 0.25 mg PO BID 03/05/2104/03 simvastatin 20 mg tablet 20 mg PO BEDTIME 03/05/21 fluticasone furoate 100 1 ea inhalation DAILY 04/24/25 mcg-vilanterol 25 mcg/dose inhalation powder donepezil 5 mg tablet 5 mg PO DAILY 11/17/2204/24 albuterol sulfate 90 mcg/actuation inhalation 01/22/25 04/24/25 aerosol inhaler bupropion HCl 150 mg 24 hr tablet, mg PO DAILY 5 04/24/25 extended release cetirizine 10 mg tablet (All Day 10 mg PO DAILY PRN 04/24/25 Allergy (cetirizine)) Previous Rx's ?Medication ?Instructions ?Recorded vibegron 75 mg tablet (Gemtesa) 75 mg PO DAILY 30 days #30 tabs 04/24/25 ciprofloxacin HCl 250 mg tablet 250 mg PO BID 5 days # 10 tabs 04/26/25 (Cipro) Allergies Allergy/AdvReac Type Severity Reaction Status Date / Time Penicillins Allergy Mild UNKNOWN Verified 05/01/25 13:55 lisinopril (LISINOPRIL) Allergy Unknown COUGH Verified 05/01/25 13:55 Review of Systems Constitutional: Constitutional: Reports no additional constitutional complaints, Denies chills, Denies fever(s) and Denies night sweats Eyes: Eyes: Reports no additional eye complaints, Denies blurry vision, Denies change in vision, Denies diplopia, Denies eye discharge, Denies loss of vision and Denies eye pain ENT: Denies dizziness Cardiovascular: Cardiovascular: Reports no additional cardiovascular complaints, Denies chest pain, Denies lightheadedness, Denies Loss of Consciousness and Denies dyspnea Respiratory: Respiratory: Reports no additional respiratory complaints and Denies dyspnea Gastrointestinal: Gastrointestinal: Reports no additional gastrointestinal complaints, Denies abdominal pain, Denies melena, Denies hematochezia, Denies change in bowel habits and Denies change in stool character Genitourinary: Genitourinary: Denies hematuria, Denies urinary frequency, Denies dysuria, Denies urinary incontinence, Denies urinary hesitancy and Denies urinary urgency Musculoskeletal: Musculoskeletal: Reports no additional musculoskeletal complaints, Denies numbness and Denies tingling Neurologic: Denies dizziness, Denies loss of vision, Denies numbness and Denies tingling Psychiatric: Psychiatric: Reports no additional psychiatric complaints Endocrine: Endocrine: Reports no additional endocrine complaints Hematologic/Lymphatic: Hematologic/Lymphatic: Reports no additional hematologic/lymphatic complaints Allergic/Immunologic: Allergic/Immunologic: Reports no additional allergic/immunologic complaints PMFSH Past Medical History Attestation statement: The following information was validated with the patient. Source: old records reviewed and nursing notes reviewed Medical History Urgency incontinence Dementia Asthma Hyperlipidemia HTN (hypertension) OAB (overactive bladder) Primary osteoarthritis of left knee Primary osteoarthritis of right knee Surgical History History of surgery Social History Social History Patient Tobacco Use Status: Former Tobacco user Smoked in Last 30 Days: No Use of substances other than those prescribed or required for medical reasons: No Advance Directives: No Advance Directives Information Provided: Yes Do you have a plan to hurt others: No Plan Physical Exam ED Vital Signs: Vital Signs - 24 hr 05/01/25 13:52 Temperature 98.1 F Pulse Rate 60 Respiratory Rate 22 H Blood Pressure 125/63 Pulse Oximetry 94 Oxygen Delivery Method Room Air BMI result Body Mass Index 30.7 Const General: cooperative, no acute distress, alert and awake Nutritional Appearance: well nourished Orientation/consciousness: patient oriented x3 HENMT Head: Yes normal to inspection and Yes atraumatic Ears: hearing grossly normal bilaterally and external ears normal General nose exam: Normal external nose present, no nasal discharge noted and no epistaxis Face and sinus: Yes normal facial exam, No abrasion and No laceration Mouth: Normal oral and palatal mucosa present, no drooling and no muffled voice Eyes General: appearance normal, both eyes and all related structures Periorbital: periorbital findings normal Eyelids: Yes eyelids normal Conjunctivae: conjunctivae normal Pupils: Equal, round and reactive pupils present EOM: EOMs intact bilaterally Neck Neck: Yes normal visual inspection, Yes full ROM and Yes no lymphadenopathy Resp Effort & Inspection: normal respiratory effort and able to speak in complete sentences Neuro General: patient oriented x3, moves all extremities and CN's II-XI intact bilaterally Cranial nerves: Yes Equal, round and reactive pupils present Cognition (Neuro): normal cognition Extrem General: Yes normal to inspection, Yes full ROM and Yes capillary refill normal Psych Appearance: grossly normal Mental Status: mental status grossly normal Affect: normal affect Attitude: cooperative Thought process: Normal thought process present Thought content: Normal thought content present Insight: Good insight present (Psych) NIH Stroke Scale Internal: Initial- Upon Arrival Level of Consciousness: Alert Level of Consciousness Questions: Answers both questions correctly Level of Consciousness Commands: Performs both tasks correctly Best Gaze: Normal Visual: No visual loss Facial Palsy: Normal Motor Arm (Right): No drift Motor Arm (Left): No drift Motor Leg (Right): No drift Motor Leg (Left): No drift Limb Ataxia: Absent Sensory: Normal Best Language: No aphasia Dysarthia: Normal Extinction and Inattention: No abnormality Score: 0 Medical Decision Making Medical Decision Making MDM Narrative: Patient is an 84 year old assigned female at with a history of Alzheimer's dementia, HTN, HLD, and OAB presenting to the emergency department today after a trip and fall. Patient's physical exam was unremarkable. Patient's CT head and c-spine showed no acute process. Patient's CT head did show evidence of an old lacunar infarct which the patient was not aware of. Patient is not having any acute stroke or stroke like symptoms. I explained my physical exam findings as well as all test results to the patient. I answered all questions asked by the patient. I stressed the importance of the patient taking her medication as directed (either prescribed or as the over the counter packaging recommends). I stressed the importance of the patient following up with her primary care provider and her neurologist. I stressed the importance of the patient returning to the emergency department immediately if she were to develop any headache, dizziness, shortness of breath, difficulty breathing, chest pain, blurry vision, loss of vision, nausea, vomiting, abdominal pain, fever, chills, back pain, or any other complaints. Patient verbalized agreement and understanding with this treatment plan and discharge. I called and spoke with the patient's daughter to explain results and make sure she understands the need to follow up on an outpatient basis. Differential Diagnosis Differential Diagnoses: The differential diagnosis associated with the presentation includes Fall Admission/Observation Consideration of admission/observation: Escalation of care including admission/observation considered Patient would have been admitted to the hospital had her work up had any findings where hospital admission was appropriate and her clinical presentation warranted hospital admission. Independent Interpretation I performed an independent interpretation of an: CT Scan Interpretation: My interpretation is in agreement with the radiologist's impression of these imaging studies. Report Number: [id number]: Total DLP = 1045.00 mGy-cm EXAMINATION: CT HEAD WITHOUT CONTRAST CLINICAL INFORMATION: Fall, head trauma COMPARISON: April 06, 2020 TECHNIQUE: Contiguous axial imaging was performed from the skull base to vertex without intravenous administration of contrast. This CT examination was performed using dose optimization techniques as appropriate, variously including the following: *Automated exposure control *Adjustment of mA and/or kV according to patient size (this includes techniques or standardized protocols for targeted exams where dose is matched to indication/reason for exam; i.e. extremities or head) *Use of iterative reconstruction technique DLP: 1045 mGY*cm FINDINGS: There is no acute ischemic change. There is a chronic lacunar infarct in the region of the right caudate nucleus and the anterior gayathri of the internal capsule that was not present on the prior. There is no intracranial hemorrhage. There is no mass-effect or midline shift. There is mild generalized atrophy of the cerebrum and moderate atrophy of cerebellum, unchanged from the prior. Basal cisterns and ventricles are within normal limits for age/cerebral volume. Orbits are symmetrical and unremarkable. Small mucous retention cyst in the posterior wall the right maxillary sinus is again seen. Paranasal sinuses and mastoid air cells are otherwise pneumatized. There are no bony abnormalities. CT/CT head/brain wo IV con IMPRESSION: No acute intracranial abnormality. There is a chronic lacunar infarct in the region of the right caudate nucleus and the anterior gayathri of the internal capsule that was not present on the prior. Moderate cerebellar atrophy, chronic. Electronically signed by: Shiva Fajardo MD 05/01/2025 03:09 PM EDT Dictated By: Shiva Fajardo MD Signed By: Electronically signed by Shiva Fajardo MD 05/01/25 1509 Report Number: [id number]: Total DLP = 1045.00 mGy-cm EXAMINATION: CT CERVICAL SPINE WITHOUT CONTRAST CLINICAL INFORMATION: Fall, head trauma COMPARISON: April 06, 2020 CT and thyroid ultrasound April 28, 2020 TECHNIQUE: Axial imaging was performed from the base of the skull through T2 without IV contrast. Coronal and sagittal reformatted images were generated from the original axial data set. ALARA: The examination used one or more of the following radiation dose reduction techniques: Automated exposure control, iterative reconstruction, and/or adjustment of mA and/or KV. DLP: 1045 mGY*cm FINDINGS: Lung apexes demonstrate interlobular septal thickening and groundglass mosaic pattern The solid nodule in the right thyroid gland measures 3.0 cm, previously 2.6 cm. There is chondrocalcinosis involving the transverse ligament and the disc at C4- 5, C5-6, and possibly C6-7. Multilevel degenerative disc disease and facet arthropathy has increased since the prior examination and is most severe at C3, C4-5, and C5-6. No fracture is identified. CT/CT cervical spine wo IV con IMPRESSION: Right thyroid gland nodule, increased in size. Ultrasound was performed April 2020 and FNA was recommended. Correlate with history. 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 No acute abnormality. Changes in the lung apex could be related to pulmonary vascular congestion. Electronically signed by: Shiva Fajardo MD 05/01/2025 03:22 PM EDT RP Dictated By: Shiva Fajardo MD Signed By: Electronically signed by Shiva Fajardo MD 05/01/25 1522 Radiology Impression Discussion of test interpretation with radiology: I have reviewed the radiologist's reading. Independent Historian Clinical information obtained from an independent historian. History obtained from or confirmed by: EMS (EMS provided additional history and confirmed the history provided by the patient. ) Discharge Plan Discharge Clinical Impression: Fall Qualifiers: Encounter type: initial encounter Qualified Code(s): W19.XXXA - Unspecified fall, initial encounter Patient Disposition: Home, Self-Care Instructions: Fall Prevention (ED) Additional Instructions: Your work up today was reassuring however, your head CT showed an incidental finding of an old lacunar infarct in the region of the right caudate nucleus and anterior gayathri of the internal capsule. Unfortunately, your most recent scan for us to compare this to is over 10 years old. It is impossible to know when this occurred but it is crucial you follow up with your neurologist on an outpatient basis and continue to take your blood pressure and cholesterol medications. Follow up with your primary care provider. Return to the emergency department immediately if your symptoms worsen or if you develop any numbness, tingling, dizziness, shortness of breath, difficulty breathing, chest pain, blurry vision, loss of vision, nausea, vomiting, abdominal pain, fever, chills, back pain, or any other complaints. Please see the information below about our Patient Portal. If you are not yet enrolled in the [facility] Patient Portal, you will receive an enrollment email invitation following your visit to any [facility] setting. You may also self-enroll in the Patient Portal by visiting our website: [email or web address] The following information is required to access the Patient Portal: - Your [facility] Medical Record Number - Your personal home email address (must match what is in your electronic medical record, Registration staff can assist with this) - Name - Date of Capabilities of the Patient Portal: - Message some providers - View upcoming appointments - Access your health summary, medical history, and visit history - View current conditions and allergies - View procedure and lab results - View your medications, including guidelines, side effects, and precautions - Complete pre-appointment questionnaires requested by your provider - Ready summary reports of your office visits and procedures To access the Patient Portal Mobile [employer], follow these directions: - Search [employer] in the [employer] Store or [employer] Store - Download the [facility] - Search for [employer] - Enter your login/password Prescriptions: No Action ciprofloxacin HCl [Cipro] 250 mg tablet 250 mg PO BID 5 Days Qty: 10 0RF montelukast 10 mg tablet 10 mg PO DAILY atenolol 50 mg tablet 50 mg PO DAILY paroxetine HCl 40 mg tablet 40 mg PO DAILY simvastatin 20 mg tablet 20 mg PO BEDTIME losartan 25 mg tablet 25 mg PO DAILY ropinirole 0.25 mg tablet 0.25 mg PO BID Breo Ellipta 100-25 mcg/dose blister with device 1 ea inhalation DAILY donepezil 5 mg tablet 5 mg PO DAILY albuterol sulfate 90 mcg/actuation HFA aerosol inhaler inhalation bupropion HCl 150 mg tablet extended release 24 hr PO DAILY cetirizine [All Day Allergy (cetirizine)] 10 mg tablet 10 mg PO DAILY PRN Gemtesa 75 mg tablet 75 mg PO DAILY 30 Days Qty: 30 3RF Referrals: Tess Bolden NP [Primary Care Provider, Family Practice] Print Language: Yi
--- NOTE | 2025-05-01 16:17 | PC.NURSE ---
Ivelisse to be discharged home. Called her friend Caryn on behalf of the patient to request a ride home. Caryn to flower picker the patient from ED.
[2025-05-01 16:19] VITALS: BP 134/55; PULSE 57; RESP 12; TEMP 36.7; O2SAT 96
[2025-05-01 16:40] VITALS: BP 134/55; PULSE 57; RESP 12; TEMP 36.7; O2SAT 96
== END 2025-05-01 16:40 | disposition home or self-care (01) ==
PROVIDERS: Emergency Provider Emergency Medicine; PCP Nurse Practitioner Family
DX: S09.90XA Unspecified injury of head, initial encounter (principal); W01.0XXA Fall on same level from slipping, tripping and stumbling without subsequent striking against object, initial encounter; Y93.9 Activity, unspecified; Y92.9 Unspecified place or not applicable; Y99.9 Unspecified external cause status; I10 Essential (primary) hypertension; E78.5 Hyperlipidemia, unspecified; G30.9 Alzheimer's disease, unspecified; F02.80 Dementia in other diseases classified elsewhere, unspecified severity, without behavioral disturbance, psychotic disturbance, mood disturbance, and anxiety
CPT/HCPCS: 70450; 72125; 99284

== ENCOUNTER → 2025-05-01 14:11 | Outpatient (BNV) | payer MEDICARE, SELFPAY | PROVIDERS: Emergency Provider Emergency Medicine; PCP Nurse Practitioner Family; Visit Provider Radiology Diagnostic Radiology | DX: E04.1 Nontoxic single thyroid nodule (principal); G31.89 Other specified degenerative diseases of nervous system | CPT/HCPCS: 70450; 72125 ==

== ENCOUNTER 2025-07-30 14:02 | Outpatient (AMB) | payer MEDICARE, SELFPAY ==
--- NOTE | 2025-07-30 14:20 | A.OFFVIS_ITS ---
Intake Visit Reasons: 3m/PVR Intake Note: Patient presents today for: 3m/PVR Urology Medication: gemtesa Blood Thinner: none PVR: 0mls Ribbon Lapper Tender Required: No Accompanied by: Self / Same As Patient Allergies Penicillins Allergy (Mild, Verified 07/30/25 15:02) UNKNOWN lisinopril (LISINOPRIL) Allergy (Unknown, Verified 07/30/25 15:02) COUGH Medication List - Last Reconciled 07/30/25 by NICA Deshpande- albuterol sulfate 90 mcg/actuation inhalation atenolol 50 mg PO DAILY bupropion HCl XL mg PO DAILY cetirizine (All Day Allergy (cetirizine)) 10 mg PO DAILY PRN ciprofloxacin HCl (Cipro) 250 mg PO BID 5 days donepezil 5 mg PO DAILY fluticasone furoate-vilanterol 100-25 mcg/dose 1 ea inhalation DAILY losartan 25 mg PO DAILY montelukast 10 mg PO DAILY paroxetine HCl 40 mg PO DAILY ropinirole 0.25 mg PO BID simvastatin 20 mg PO BEDTIME vibegron (Gemtesa) 75 mg PO DAILY 30 days HPI Comments Details: Ivelisse is a pleasant 84-year-old female patient of Dr. Bolden. She has a past medical history of dementia, asthma, hyperlipidemia, hypertension, overactive bladder, osteoarthritis, and urgency incontinence. She presents today to the office for follow-up regarding her lower urinary tract symptoms/overactive bladder. In discussion with the patient today she does report some improvement in episodes of nocturia with initiation of Gemtesa however does not feel it has been as beneficial as which she would like. Patient with a previous history of multiple failed overactive bladder medications to include Myrbetriq, tolterodine, and VESIcare. She has also attempted dual therapy with Myrbetriq and VESIcare. She continues to experience episodes of nocturia up to 5 times per night compared to previously experiencing nocturia up to 9 times per night. She otherwise feels her urinary symptoms are manageable throughout the day. In office urinalysis results reviewed with the patient today. PVR 0 mL. She discusses her upcoming appointment with her crate repairer and will be undergoing cataract surgery. Previous workup has included a retroperitoneal ultrasound 08/25 noting right kidney with no calculi, lesions, and or hydronephrosis. The left kidney with no calculi or hydronephrosis. Tiny anechoic simple cyst is seen in inferior left renal cortex measuring 0.7 x 0.8 x 0.6 cm in size. Bosniak category 1, for which no follow- up imaging is recommended per radiology report. The bladder is partially distended. Bilateral ureteral jets are demonstrated. Pre void bladder volume is approximately 30 mL. She discusses living at the [facility] in [place] and really enjoys living there however feels her memory and dementia at times are worsening and is enquiring potential placement in long-term care facility. She discusses being active within the community ([facility]) as well as at her residence. She states she continues working on her memory with activities daily such as reading, bingo, and crossword puzzles. She otherwise offers no other issues or concerns at this time. [facility] Medical History Urgency incontinence Dementia Asthma Hyperlipidemia HTN (hypertension) OAB (overactive bladder) Primary osteoarthritis of left knee Primary osteoarthritis of right knee Surgical History History of surgery Social History Patient Tobacco Use Status: Former Tobacco user Review of Systems Const Reports as per HPI Eyes Reports no additional complaints ENT Reports no additional complaints Card Reports as per HPI Resp Reports no additional complaints GI Reports no additional complaints Reports as per HPI Musc Details: She reports following up with pain management in [place] for ongoing injections for her arthritis. Reports as per HPI Neuro Reports as per HPI Psych Reports no additional complaints Endo Reports no additional complaints Keaton/Lymph Reports no additional complaints Aller/Immun Reports no additional complaints Physical Exam Const General: cooperative, healthy appearing, comfortable, no acute distress, well developed, alert and awake Nutritional Appearance: overweight Orientation/consciousness: patient oriented x3 Limitations: ambulation with walker HEENT Head: Yes normal to inspection, Yes normocephalic and Yes atraumatic Ears: hearing grossly normal bilaterally Eyes General: appearance normal, both eyes and all related structures Neck Neck: Yes normal visual inspection and Yes trachea midline Chest Chest palpation & inspection: normal inspection of the chest Resp Effort & Inspection: normal respiratory effort and able to speak in complete sentences Cardio Rate: regular rate GI Inspection: Yes normal to inspection General: Yes no CVA tenderness Back/Spine/Pelvis Back: no CVA tenderness Skin General skin exam: no rashes or lesions noted Neuro General: patient oriented x3 Extrem General: Yes normal to inspection Psych Appearance: grossly normal Mental Status: mental status grossly normal Speech and movement: Normal speech and movement present and Clear speech present Affect: normal affect Attitude: cooperative Thought process: Normal thought process present Thought content: Normal thought content present Insight: Fair insight present (Psych) Judgement: Fair judgement present (Psych) Office Procedures Post Void Residual Post Residual Void Post Void Residual (PVR): 0 83426-Dlcn Void Residual by ultrasound Results AMB Urinalysis, Automated UA Leukoctes 0 Violet/uL Last Edit by GENESIS Ingram on 07/30/25 14:45 UA Nitrite Last Edit by GENESIS Ingram on 07/30/25 14:45 UA Urobilinogen 0.2 mg/dL Last Edit by GENESIS Ingram on 07/30/25 14:4 5 UA Protein 15 mg/dL Last Edit by GENESIS Ingram on 07/30/25 14:45 UA pH 5.0 Last Edit by GENESIS Ingram on 07/30/25 14:45 UA Blood 0 Zachery/uL Last Edit by GENESIS Ingram on 07/30/25 14:45 UA Specific [place] 1.030 Last Edit by GENESIS Ingram on 07/30/25 14: 45 UA Ketone Last Edit by GENESIS Ingram on 07/30/25 14:45 UA Bilirubin 0 mg/dL Last Edit by GENESIS Ingram on 07/30/25 14:45 UA Glucose 0 mg/dL Last Edit by GENESIS Ingram on 07/30/25 14:45 Results Reviewed Results Reviewed: Laboratory Last Values Urine pH (Auto) 5.0 07/30/25 14:43 Specific [place] (Auto) 1.030 07/30/25 14:43 Urine Protein (Auto) 15 mg/dL 07/30/25 14:43 Glucose (UA)(Auto) 0 mg/dL 07/30/25 14:43 Urine Blood (Auto) 0 Zachery/uL 07/30/25 14:43 Urine Bilirubin (Auto) 0 mg/dL 07/30/25 14:43 Urine Urobilinogen (Auto) 0.2 mg/dL 07/30/25 14:43 Leukocyte Esterase (Auto) 0 Violet/uL 07/30/25 14:43 Assessment & Plan Assessment & Plan (1) Urgency incontinence: Code(s): N39.41 - Urge incontinence Category: Medical (2) OAB (overactive bladder): Code(s): N32.81 - Overactive bladder Category: Medical (3) Nocturia: Code(s): R35.1 - Nocturia Category: Medical (4) Urinary urgency: Code(s): R39.15 - Urgency of urination Category: Medical (5) Renal cyst: Code(s): N28.1 - Cyst of kidney, acquired Category: Medical Plan In office urinalysis results reviewed with the patient today; as noted above. PVR 0 mL. Will continue Gemtesa at this time as patient has had somewhat improvement in nocturia. She is enquiring further interventions Will schedule for in office urodynamics for further assessment evaluation. We did discussed continuing to limit fluids 2-3 hours prior to bed. All questions were answered. We did discuss holding Gemtesa 7-10 days prior to in office urodynamics Information provided regarding in office urodynamics. Follow-up per doctor's orders; or sooner with any issues, concerns, and or questions. Orders: Orders AMB Urinalysis Automated Today Z13.9 - Encounter for screening, unspecified AMB Post Void Residual by ultrasound Today R35.1 - Nocturia Medications: Discontinued ciprofloxacin HCl (Cipro) Discontinued Reason: Doctor's Order 250 mg PO BID 5 days 10 tabs 0RF Patient Instructions: The patient had an opportunity to ask questions regarding the treatment plan. All questions were answered. Physical exam, labs, and imaging were discussed and reviewed in detail. As well as risks, benefits, and discussion of treatment choices. No major barriers to understanding were identified. The patient expressed understanding and agreement with the above treatment plan. The patient was made aware they should contact our office by phone for worsening of their current condition, the appearance of new symptoms, or with any questions or concerns. Compliance is encouraged with any medications and follow up testing that is ordered. It is a privilege to be allowed the opportunity to participate in? your urological care.? Again, if you have any questions or concerns If you have any questions or concerns please do not hesitate to contact me. The office is [phone]. This note is constructed using voice recognition software. While every effort has been made to ensure accuracy front sight attacher errors may have been included. Yours sincerely, MILAD Deshpande Coding Level of Care Code Est Pt Level 3 (40854) Complex EM visit Add On G2211 Diagnoses Urgency incontinence N39.41 OAB (overactive bladder) N32.81 Nocturia R35.1 Urinary urgency R39.15 Renal cyst N28.1 CPT Codes Post Residual Void - PVR CPT Code: 62927-Ydba Void Residual by ultrasound ([id number])
--- OUTSIDE RECORDS SUMMARY | 2025-07-30 18:30 | XMS_ITS | Data Portability ---
Author Organization [place] [facility] Address [address] [place] [id number] Care Team Providers Care Arc Welder Apprentice Name Role Phone OUMOU PIZANO Primary Care [...] I have accessed patient records on the [employer]. This information was pertinent in [...] after care of this patient according to [facility]'s infection prevention protocols. In order to [...] ionized calcium, serum or plasma 2019 jed [facility], [address] [place] [address], [address], 0 13:50:24 Referral None recorded. Procedures None recorded. Surgeries None recorded. Imaging None recorded. Medication Orders prednison e 10 mg tablet 2019 joenianjel Not available 0 12:04:58 prednison e 20 mg tablet 2019 020 INTERFACE [facility], [address] [place], [address], 0 10:31:40 sodium chloride 0.9 % intraveno us solution [facility] [address] [place], [address], 0 10:13:21 Patient TargetsNo targets recorded. Patient Instructions Encounter Date Encounter Id Patient Instructions Last Modified By Organization Details Last Modified Time 10/13/2019 [id number] Acute Nausea and Vomiting/Diarrhea BASIC INFORMATION Acute [...] caused by toxins released from food that g oes bad as well as some types of [...] disease, do not use Tylenol. Ask your DIRECTOR FINANCIAL SERVICES how to address fever if you are concerned about Tylenol use. 3) Anti-diarrheal medicines: These are available [id number], but in some cases are not recommended and can even worsen some cases of intestinal problems. Ask your DIRECTOR FINANCIAL SERVICES if you should use them. In children [...] with one [facility]. SEEK CARE IMMEDIATELY IF: 1) You are [...] in your condition between 8am-10pm, please call [facility] at [phone] to help navigate your care. Thank you for your visit with [facility] today. You were seen today for [...] in your condition between 8am-10pm, please call [facility] at [phone] to help navigate your care. jed Not available 10/13/2019 13:14:39 Reason for Referral None Reported. Results Created Date Observation Date Name Description Value Unit Range Abnormal Flag Note LastModifiedBy Organization Detail LastModifiedTime 10/13/19 20 10/13/2019 BMP + ioniz ed calci um, serum or plasm a Na 141 mmol/ L 138-14 6 Not Available [facility] [address] [place], [address], 10/13/2019 13:14:42 10/13/19 20 10/13/2019 BMP + ioniz ed calci um, serum or plasm a K 4.2 mmol/ L 3.5-4. 9 Not Available [facility] [address] [place], [address], 10/13/2019 13:14:42 10/13/19 20 10/13/2019 BMP + ioniz ed calci um, serum or plasm a cL 105 mmol/ L 98-109 Not Available [facility] [address] [place], [address], 10/13/2019 13:14:42 10/13/19 20 10/13/2019 BMP + ioniz ed calci um, serum or plasm a ica 1.25 mmol/ L 1.12-1 .32 Not Available [facility] [address] [place], [address], 10/13/2019 13:14:42 10/13/19 20 10/13/2019 BMP + ioniz ed calci um, serum or plasm a TCO2 28 mmol/ L 24-29 Not Available [facility] [address] [place], [address], 10/13/2019 13:14:42 10/13/19 20 10/13/2019 BMP + ioniz ed calci um, serum or plasm a glu 118 mg/dL 70-105 Not Available [facility] [address] [place], [address], 10/13/2019 13:14:42 10/13/19 20 10/13/2019 BMP + ioniz ed calci um, serum or plasm a BUN 16 mg/dL 8-26 Not Available [facility] [address] [place], [address], 10/13/2019 13:14:42 10/13/1910/13/2019 BMP + ioniz ed calci um, serum or plasm a crea 0.6 mg/dL .6-1.3 Not Available [facility] [address] [place], [address], 10/13/2019 13:14:42 10/13/19 20 10/13/2019 BMP + ioniz ed calci um, serum or plasm a HCT 43 %_pcv 38-51 Not Available [facility] [address] [place], [address], 10/13/2019 13:14:42 10/13/19 20 10/13/2019 BMP + ioniz ed calci um, serum or plasm a Hb 14.6 g/dL 12-17 Not Available [facility] [address] [place], [address], 10/13/2019 13:14:42 10/13/19 20 10/13/2019 BMP + ioniz ed calci um, serum or plasm a angap 12 mmol/ L 10-20 Not Available [facility] [address], [place], [address], 10/13/2019 13:14:42 10/19/19 elect rocar diogr am No observ ation record ed. BARCODE Not Available 2019 15:19:57 10/19/19 elect rocar diogr am No observ ation record ed. BARCODE Not Available 2019 15:19:57 Result Notes None recorded. Problems Name Problem SNOMED Code Status Onset Date Resolution Date Notes Provider Name and Address Organization Details Recorded Time Hypertensive disorder 15532033 Active 2019 JAY HAND NP [address] [place], [address], [place] [facility] 0 13:12:25 Problem Notes None recorded. Procedures Surgical History Date Name Laterality Status Provider Name and Address Organization Details Recorded Time 10/13/19 20 IV Start Procedure - completed JAY HAND NP [address] [place], [address], [place] [facility] 10/13/2019 13:26:46 10/13/19 ECG Interpretation - completed JAY HAND NP [address] [place], [address], [place] [facility] 10/13/2019 13:50:05 Imaging Results None recorded. Procedure Notes None recorded. Medical Equipment None Reported. Allergies Allergen ID Allergen Name Allergen Category Reaction Reaction Severity Criticality Documentation Date Start Date Code Code System Note Provider Name and Address Organization Details Recorded Time 52042 Product containin g penicilli n (product) medicatio n Not available Not available Not available 10/13/2019 05956 8001 SNOMED JAY HAND , DIRECTOR FINANCIAL SERVICES [address], [place], [place], [address], [place] [facility] 0 13:05:22 11249 lisinopri l medicatio n Not available Not available Not available 10/13/2019 15983 RxNorm JAY HAND , DIRECTOR FINANCIAL SERVICES [address], [place], [place], [address], [place] [facility] 0 13:05:27 [...] 60 /min 100/64 mm[Hg] Not Available [facility] 0 13:06:12 Date Recorded Heart rate Oxygen [...] Tobacco Smoking Status Former Smoker JAY HAND, AISSATOU [address], [place], [address], [place] [facility] 10/13/2019 13:12:34 Do You [...] Visiting Friends Or Family Or Going To Sikhism Or Club Meetings) 5 Or More Times [...] None Information not available 10/13/2019 Marital Status [email or web address] Informatio n not available 10/13/2019 Sex: Unknown Functional Status None recorded. Mental Status None recorded. Family History Relationship Description Onset Age of this Age Resolved Age Notes LastModified by Organization Details LastModified Time Mother Hypertensive disorder [email or web address] Not available 10/13 13:14:30 Medical History Condition Response Hypertension Y Depression Y Asthma Y High Cholesterol Y Gynecological HistoryNo gynecological history recorded. Obstetrics History GPAL:G 0 P 0 0 0 0 Past Encounters Encounter ID Performer Location Encounter Start Date Encounter Closed Date Diagnosis/Indication Diagnosis SNOMED-CT Code Diagnosis ICD10 Code Diagnosis IMO Codes Diagnosis Note [id number] JAY HAND NP [facility] [place] [address] [place] [address] 10/13/2019 13:01:27 10/15/2019 12:47:22 Diarrhea 11224688 R19.7 Dizziness present 821876 006 R42 Viral gastroenteritis 11 1314957 A08.4 Sinus bradycardia 625873 05 R00.1 [id number] B[facility]ANY ZAMARRIPA [facility] [address] [place] [address] 03/24/2020 10:12:38 03/24/2020 16:17:28 Lumbar radiculopathy 961527549 M54.16 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 76570636 M46.1 Health Concerns Section Related Observation LastModified by Organization Detai ls LastModified Time None Recorded Concern Status LastModified by Organization Details LastModified Time None Recorded Advance Directives Directive Y: Payers Insurance Date Sequence Insurance Name Policy Number Policy Glover Covered Member ID Glover Member ID Guarantor Name 10/13/2019 1 *SELF PAY* Ivelisse Chevak [id number] Ivelisse Chevak 10/13/2019 1 [place] Ivelisse Chevak [id number] Ivelisse Chevak 03/24/2020 2 [place] [id number] Ivelisse Chevak [id number] Ivelisse Chevak 10/13/2019 1 [place]MEDICARE [place]PLAC[place] HMO) Ivelisse Chevak [id number] Ivelisse Chevak 10/13/2019 2 [place] Ivelisse Chevak [id number] Ivelisse Chevak 03/24/2020 1 [place] Ivelisse E Chevak [id number] Ivelisse Chevak Notes Date Note Type Note Provider Name [...] of the country. JAY HAND NP [address] [place], [address], [place] [facility] 10/13/2019 22:45:30 03/24/2020 text/html 79-year-old female presents for evaluation leg pain. Reports about [...] due to not sleeping. BETHANY ZAMARRIPA [address] [place], [address], [place] [facility] 03/24/2020 10:49:14 OBGyn Episode No OBEpisode recorded.
--- OUTSIDE RECORDS SUMMARY | 2025-07-30 18:30 | XMS_ITS | Patient Health Record ---
Author Organization [facility] Address [address] [place] [address] Care Team Providers Care Story Editor Name Role Phone Jori Devlin Primary Care Provider Nilay James Jr Unavailable [phone] Allergies Allergen (clinical drug ingredient) Drug/Non Drug Allergy documented on EMR Reaction Allergy Type Onset Date Status Penicillin Unknown Drug Allergy Active Reason For Referral No Information Medications Medication SIG (Take, Route, Frequency, Duration) Notes Start Date End Date Status Fluticasone Propionate 50 MCG/ACT 1 spray in each nostril Nasally Once a day Not-Taking ProAir HFA 108 (90 Base) MCG/ACT 2 puffs as needed Inhalation prn Not-Taking Atenolol 50 MG 1 tablet Orally Once a day Active Colyte with Flavor Packs 240 GM As directed Orally Over the specified time.; Duration: 1 day(s) Active Iron Polysacch Mzipg-I26-MK 150-0.025-1 MG 1 capsule Orally Once a day Not-Taking dilTIAZem HCl ER 240 MG 1 capsule on an empty stomach in the morning Orally Once a day Active Losartan Potassium 25 MG 1 tablet Orally Once a day Active PARoxetine HCl 40 MG 1 tablet in the mor fidel Orally Once a day Active rOPINIRole HCl 0.25 MG 1 tablet 1 to 3 h ours before bedtime Orally Once a day Active Simvastatin 20 MG 1 tablet in the even ing Orally Once a day Active VESIcare 10 MG 1 tablet Orally Once a day Active Pantoprazole Sodium 20 MG 2 tablet Orall y Once a day Active Aspirin 81 MG 1 tablet Orally Once a day Active Immunizations Vaccine Route Administration Date Status Comme nts Flu vaccine no Preserv 3 and > Unknown 06/12/2014 Admin istered Flu vaccine no Preserv 3 and > Unknown 06/23/2014 Admin istered Influenza Unknown 12/01/2016 Administered Flu vaccine no Preserv 3 and > Unknown 06/13/2017 Admin istered Problems Problem Type SNOMED Code ICD Code Onset Dates Problem Status W/U Status Risk Notes Problem Gastroesophageal reflux disease without esophagitis (079675226) Gastroesophageal reflux disease without esophagitis (K21.9) Active confirmed Problem Chronic 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 obstruction (56576615) Gastrointestinal hemorrhage associated with gastric ulcer (K25.4) Active confirmed Problem Peptic ulcer disease (56951734) Peptic ulcer disease (K27.9) Active confirmed Problem Abnormal feces (960929423) Abnormal findings in stool (R19.5) Active confirmed Problem Irritable bowel syndrome (29806526) Irritable bowel syndrome with both constipation and diarrhea (K58.2) Active confirmed Plan Of Treatment Future Test Test Name Order Date UPPER GI ENDOSCOPY 07/23/2015 COLONOSCOPY 09/14/2017 Insurance Providers Payer Name Payer Address Payer Phone Subscriber Number Group Number Insured Name Patient Relationship to Insured Coverage Start Date Coverage End Date MEDICARE OF [place] [address] [place] [address] [phone] [id number] NEGAR ORELLANA Self - patient is the insured MED[employer] ATTN CLAIMS [address] [place] [address] [phone] [id number] NEGAR ORELLANA Self - patient is the insured Medical (General) History Medical History History ICD Code EGD/Colonoscopy 11/28/2009 elevated Cholesterol depression hypertension bladder spasms back problems asthma seasonal allergies sleep apnea-cpap machine urinary incontinence Surgical History Surgery Date(Month/Year) hysterectomy with oophorectomy
== END 2025-07-30 15:23 | disposition home or self-care (01) ==
LOC: HO.HUSH 14:03
PROVIDERS: PCP Nurse Practitioner Family; Visit Provider Nurse Practitioner Family
DX: N39.41 Urge incontinence (principal); N32.81 Overactive bladder; R35.1 Nocturia; R39.15 Urgency of urination; N28.1 Cyst of kidney, acquired; Z13.9 Encounter for screening, unspecified
CPT/HCPCS: 99213; G2211

== ENCOUNTER → 2025-07-30 14:02 | Outpatient (BNVA) | payer MEDICARE, SELFPAY | PROVIDERS: PCP Nurse Practitioner Family; Visit Provider Nurse Practitioner Family | DX: N39.41 Urge incontinence (principal); N32.81 Overactive bladder; N28.1 Cyst of kidney, acquired; R35.1 Nocturia; Z13.9 Encounter for screening, unspecified | CPT/HCPCS: 51798; 81003; 99212 ==